=== PATIENT | male | born 1975 ===

== ENCOUNTER → 2020-02-05 11:37 | Outpatient (BNVA) | payer OTHER, SELFPAY | PROVIDERS: Visit Provider Internal Medicine Gastroenterology | DX: Z76.89 Persons encountering health services in other specified circumstances (principal) ==

== ENCOUNTER 2020-05-24 06:35 | Emergency (ER) | payer OTHER, SELFPAY ==
--- NOTE | ~2020-05-24 | CT_ITS ---
EXAMINATION: CT ABDOMEN AND PELVIS WITHOUT CONTRAST CLINICAL INFORMATION: Right flank pain. Rule out kidney stone. COMPARISON: CT abdomen and pelvis dated 02/17/2017. TECHNIQUE: Multidetector volumetric imaging was performed from the superior aspect of the liver through the pubic symphysis. Sagittal and coronal reformatted images were obtained on the technologist's workstation. This CT examination was performed using dose optimization techniques as appropriate, variously including the following: *Automated exposure control *Adjustment of mA and/or kV according to patient size (this includes techniques or standardized protocols for targeted exams where dose is matched to indication/reason for exam; i.e. extremities or head) *Use of iterative reconstruction technique DLP: 555 mGy-cm FINDINGS: LUNG BASES: The visualized lung bases are unremarkable. LIVER, GALLBLADDER, AND BILIARY TREE: The liver is normal in size, shape, and attenuation. No focal hepatic lesion or biliary ductal dilatation is present. The gallbladder is unremarkable with no evidence of radiopaque gallstones, gallbladder wall thickening, or obvious pericholecystic inflammatory changes. PANCREAS: Unremarkable. SPLEEN: Unremarkable. ADRENAL GLANDS: Unremarkable. KIDNEYS AND URETERS: The kidneys are normal in size, shape, and attenuation. No hydronephrosis, hydroureter, or calculi seen. No perinephric stranding. No ureteral calculi. BLADDER: Calculus in the urinary bladder just distal to the left UVJ measures up to 5 mm (4:643). GASTROINTESTINAL TRACT: The small and large bowel are unremarkable. The appendix is unremarkable. ABDOMINAL WALL: No significant hernia is appreciated. LYMPH NODES: Normal. VASCULAR: Unremarkable. PELVIC VISCERA: Prostate seminal vesicles are normal caliber. OSSEOUS STRUCTURES: Unchanged bilateral L5 pars interarticularis defects. CT/CT abdomen pelvis wo con IMPRESSION: Calculus in the left posterior urinary bladder just distal to the left UVJ. No renal or ureteral calculi bilaterally. No hydronephrosis. No hydroureter.
[2020-05-24 06:52] VITALS: BP 170/102; PULSE 66; RESP 20; TEMP 36.4; O2SAT 100; BMI 25.8
--- NOTE | 2020-05-24 07:17 | ED_ITS ---
HPI - Abdominal Pain General Chief Complaint: Abdominal Pain Stated Complaint: Flank pain Time Seen by Provider: 05/24/20 07:14 Source: patient Mode of arrival: ambulatory Limitations: no limitations History of Present Illness HPI narrative: 44-year-old male history of kidney stones in the past and this pain is similar to the pain when he had kidney stones, pain started 2 hours ago woke the patient up from sleep, pain is localized to the right flank area radiating down to the right inguinal hernia, describes the pain as severe colic/spasm, pain is associated with nausea, nothing makes the pain worse or better, had this pain in the past when he had a right kidney stones. Patient had a history of ESWL with stent placement for previous kidney stone. Related Data Previous Rx's Medication Instructions Recorded omeprazole 20 mg capsule,delayed 20 mg PO DAILY 60 Days #60 cap 02/05/20 release Allergies Allergy/AdvReac Type Severity Reaction Status Date / Time No Known Allergies Allergy Unverified 11/22/19 16:11 Review of Systems Review of Systems All other systems are reviewed and are negative Constitutional: Reports as per HPI and Reports no additional constitutional complaints Eyes: Reports as per HPI and Reports no additional eye complaints Reports system reviewed and no additional complaints, except as documented Cardiovascular: Reports as per HPI and Reports no additional cardiovascular complaints Respiratory: Reports as per HPI and Reports no additional respiratory complaints Gastrointestinal: Reports as per HPI and Reports no additional gastrointestinal complaints Genitourinary: Reports no additional female genitourinary complaints Musculoskeletal: Reports no additional musculoskeletal complaints Skin/Breast: Reports system reviewed and no additional complaints, except as docu Psychiatric: Reports no additional psychiatric complaints Endocrine: Reports no additional endocrine complaints Hematologic/Lymphatic: Reports no additional hematologic/lymphatic complaints Allergic/Immunologic: Reports no additional allergic/immunologic complaints Reports system reviewed and no additional complaints, except as documented and Reports Abnormal speech present Physical Exam Vital Signs: Vital Signs: Last Vital Signs Temp 97.6 F 05/24/20 06:52 Pulse 66 05/24/20 06:52 Resp 20 05/24/20 06:52 BP 170/102 H 05/24/20 06:52 Pulse Ox 100 05/24/20 06:52 Body Mass Index 25.8 Vital signs have been reviewed as appeared to be correct. Blood pressure is elevated. Heart rate normal. Respiration rate normal. Temperature normal. Oxygen saturation normal. Appearance: Alert. Oriented X3. Moderate acute distress due to pain Head: Normal external exam. Normocephalic. Atraumatic. No Shankar signs noted. No raccoon eyes noted Eyes: PERRLA. EOMI. Conjunctiva and sclera normal. Eyelids normal. ENT: TM's Normal. Pharynx normal. Uvula midline. Moist mucous membranes. No trismus noted. No drooling noted. No muffled voice noted. Neck: Normal inspection. Neck supple. FROM. No adenopathy. Thyroid Normal. No meningeal signs. No neck mass noted. CVS: Normal heart rate and rhythm. Heart sound normal. No murmurs noted. Pulses normal throughout. Respiratory: No respiratory distress. Painless inspiration. Breath sounds normal. No wheezes/rales/rhonchi noted. Chest nontender. No accessory muscle usage noted or decreased air movement noted. Abdomen: Soft and nontender. Bowel sounds normal in all 4 quadrants. No distention noted. No organomegaly noted. No visible injury noted. Back: Right CVA tenderness. Full range of motion noted. Skin: Skin warm and dry. Normal skin color. Normal skin turgor. No rashes/lesions/lacerations noted. Extremities: No lower extremity edema. Extremities exhibit normal range of motion. Extremities nontender. Neuro: Oriented X 3. No motor deficit. No sensory deficit. Reflexes normal. Course Course Course Narrative: This is a 44-year-old male with history of kidney stone came in with right flank pain, patient felt better after was given pain medication, CT of the abdomen and pelvis showed possible recently passed stone in the urinary bladder. Patient voided in the emergency department and small stone was found on strainer. Patient appears more comfortable no acute distress, right flank tenderness has improved. MDM - Abdominal Pain Lab Data Attestation: I reviewed the patient's lab results. Result diagrams: 05/24/20 07:28 05/24/20 07:28 Labs: Lab Results 05/24/20 05/24/20 05/24/20 Range/Units 07:28 07:28 07:28 WBC 7.3 (4.8-10.8) X10*3/uL RBC 5.58 (4.60-5.80) X10*6/uL Hgb 14.8 (14.0-18.0) g/dl Hct 45.0 (42-52) % MCV 80.6 (80-98) fL MCH 26.5 L (27.0-33.0) pg MCHC 32.9 (31.0-36.0) g/dl RDW 13.4 (11.0-16.0) % Plt Count 250 (160-400) X10*3/uL MPV 11.3 (9.4-12.4) fL Immature Gran % (Auto) 0.1 (0.0-0.4) % Neut % (Auto) 64.6 (45-73) % Lymph % (Auto) 27.7 (20-40) % [place] % (Auto) 6.2 (2-11) % Eos % (Auto) 1.0 (0-4) % Baso % (Auto) 0.4 (0-2) % Lymph # (Auto) 2.0 (1.2-4.9) X10*3/uL [place] # (Auto) 0.5 (0.1-1.2) X10*3/uL Eos # (Auto) 0.1 (0.0-0.4) X10*3/uL Baso # (Auto) 0.0 (0.0-0.2) X10*3/uL Abs Immat Gran (auto) 0.01 (0.00-0.03) X10*3/uL Absolute Neuts (auto) 4.7 (2.0-8.3) X10*3/uL Absolute Nucleated RBC 0.000 (0.0-0.012) X10*3/uL Nucleated RBC % (auto) 0.0 (0.0-0.2) /100WBC Sodium 140 (135-145) mmol/L Potassium 4.4 (3.3-5.1) mmol/L Chloride 102 (96-108) mmol/L Carbon Dioxide 28 (22-29) mmol/L Anion Gap 14 (12-20) BUN 13 (9-16) mg/dL Creatinine 1.24 (0.5-1.4) mg/dL Estim Creat Clear Calc 78.4 Estimated GFR > 60 Random Glucose 128 H (60-115) mg/dL Calcium 9.7 (8.4-10.2) mg/dL Total Bilirubin 0.7 (0.0-1.0) mg/dL Direct Bilirubin 0.2 (0.0-0.5) mg/dL AST 22 (5-37) U/L ALT 29 (0-40) U/L Alkaline Phosphatase 42 (39-117) U/L Total Protein 7.7 (6.5-8.0) g/dL Albumin 4.7 (3.5-5.0) g/dL Lipase 19 (8-78) U/L Urine Color YELLOW Urine Appearance HAZY Urine pH 6.0 (5.0-8.0) Ur Specific [place] >= 1.030 H (1.005-1.025) Urine Protein TRACE (NEG-TRACE) MG/DL Urine Glucose (UA) 100 H (NEG) MG/DL Urine Ketones NEG (NEG) MG/DL Urine Blood 3+ H (NEG) Urine Nitrite NEG (NEG) Ur Leukocyte Esterase NEG (NEG) Urine RBC 76-150 H (0) /HPF Urine WBC 0 (0-4) /HPF Ur Squamous Epith Cells 1+ /LPF Urine Bacteria NONE /LPF Imaging Data CT scan - abdomen: Radiologist's impression: Calculus in the left posterior urinary bladder just distal to the left UVJ. No renal or ureteral calculi bilaterally. No hydronephrosis. No hydroureter. Discharge Plan Discharge Clinical Impression: Renal colic Patient Disposition: Home, Self-Care Instructions: Renal Colic (ED) Prescriptions: No Action omeprazole 20 mg capsule,delayed release(DR/EC) 20 mg PO DAILY 60 Days Qty: 60 RF: 3 Referrals: Rima Gerber MD [Primary Care Provider] - 2 days PENDING SALE TO [facility] Past Medical History Medical History History of hemorrhoids Kidney stones Surgical History History of colonoscopy Hx of endoscopy Family History Family History Father History of high blood pressure Hx of type 1 diabetes mellitus Mother No problems noted. Social History Social History Alcohol intake: never Smoking Status: Never smoker Smoked in Last 30 Days: No Use of substances other than those prescribed or required for medical reasons: No Advance Directives: No Advance Directives Information Provided: No
[2020-05-24 07:33] LABS: MANUAL DIFF FLAG NO
[2020-05-24 07:35] LABS: Basophils Percent Auto 0.4 % (0-2); Eosinophils Absolute Auto 0.1 X10*3/uL (0.0-0.4); Hemoglobin 14.8 g/dl (14.0-18.0); Imm Gran Abs Auto 0.01 X10*3/uL (0.00-0.03); Imm Gran Pct Auto 0.1 % (0.0-0.4); Lymphocytes Percent Auto 27.7 % (20-40); Mean Corpuscular HGB Conc 32.9 g/dl (31.0-36.0); Mean Corpuscular Hemoglobin 26.5 pg (27.0-33.0); Mean Corpuscular Volume 80.6 fL (80-98); Mean Platelet Volume 11.3 fL (9.4-12.4); Monocytes Absolute Auto 0.5 X10*3/uL (0.1-1.2); Monocytes Percent Auto 6.2 % (2-11); Neutrophils Absolute Auto 4.7 X10*3/uL (2.0-8.3); Neutrophils Percent Auto 64.6 % (45-73); Platelet Count 250 X10*3/uL (160-400); Red Blood Count 5.58 X10*6/uL (4.60-5.80); Red Cell Distribution Width 13.4 % (11.0-16.0); White Blood Count 7.3 X10*3/uL (4.8-10.8)
[2020-05-24] MEDS: Ketorolac Tromethamine 15 MG/ML VIAL IV (07:35)
[2020-05-24] MEDS: 0.9 % Sodium Chloride 1,000 ML 999 ML IVCONT (07:35)
[2020-05-24] MEDS: Morphine Sulfate 2 MG/ML CARTRIDGE 1 MG IVPUSH (07:35)
[2020-05-24] MEDS: ondansetron HCL 4 MG/2 ML VIAL IVPUSH (07:35)
[2020-05-24 07:46] LABS: Glucose Urine UA 100 MG/DL (NEG); Leukocyte Esterase Urine NEG (NEG); Nitrite Urine NEG (NEG); Specific Gravity - Urine >= 1.030 (1.005-1.025); Urine Blood 3+ (NEG); Urine Ketones NEG (NEG); Urine Protein TRACE MG/DL (NEG-TRACE)
[2020-05-24 07:50] LABS: Color Urine YELLOW
[2020-05-24 07:51] LABS: Appearance Urine HAZY
[2020-05-24 07:56] LABS: Squamous Epithelial Cell Urine 1+ /LPF; WBC Urine 0 /HPF (0-4)
[2020-05-24 08:18] LABS: Alanine Aminotransferase 29 U/L (0-40); Albumin Level 4.7 g/dL (3.5-5.0); Alkaline Phosphatase 42 U/L (39-117); Anion Gap 14 (12-20); Aspartate Amino Transferase 22 U/L (5-37); Bilirubin Direct 0.2 mg/dL (0.0-0.5); Bilirubin Total 0.7 mg/dL (0.0-1.0); Blood Urea Nitrogen 13 mg/dL (9-16); Calcium 9.7 mg/dL (8.4-10.2); Carbon Dioxide 28 mmol/L (22-29); Chloride 102 mmol/L (96-108); Creatinine Clr Calc Pharmacy 78.4; Estimated Glomerular Filt Rate > 60; Glucose Random 128 mg/dL (60-115); Lipase 19 U/L (8-78); Potassium 4.4 mmol/L (3.3-5.1); Sodium 140 mmol/L (135-145); Total Protein 7.7 g/dL (6.5-8.0)
== END 2020-05-24 09:57 | disposition home or self-care (01) ==
PROVIDERS: Emergency Provider Emergency Medicine; PCP Internal Medicine
DX: N21.0 Calculus in bladder (principal); I10 Essential (primary) hypertension; Z87.442 Personal history of urinary calculi
CPT/HCPCS: 36415; 74176; 80048; 80076; 81001; 83690; 85025; 96361; 96374; 96375; 99284; J1885; J2270; J2405

== ENCOUNTER 2020-06-07 14:28 | Emergency (ER) | payer OTHER, SELFPAY ==
--- NOTE | ~2020-06-07 | XR_ITS ---
EXAMINATION: XR FOOT, RIGHT CLINICAL INFORMATION: Nail puncture wound at the bottom of the foot COMPARISON: None TECHNIQUE: AP, lateral, and oblique views of the right foot. FINDINGS: There is normal alignment without acute fracture or dislocation. The joint spaces are preserved. Soft tissues are intact. No radiopaque foreign body. XR/XR foot RT min 3V IMPRESSION: No acute bony abnormality of the right foot. No radiopaque foreign body.
[2020-06-07 14:30] VITALS: BP 137/95; PULSE 120; RESP 16; TEMP 36.9; O2SAT 96; BMI 25.8
--- NOTE | 2020-06-07 14:53 | ED.LOWEXIN ---
HPI - Extremity Injury (Lower) General Chief Complaint: Extremity Injury, Lower Stated Complaint: R FOOT PUNCTURE WOUND NAIL Time Seen by Provider: 06/07/20 14:52 History of Present Illness HPI Narrative: Patient complains of right foot puncture wound from stepping on a nail, there is no numbness weakness or tingling, no difficulty ambulating no other injury Related Data Previous Rx's Medication Instructions Recorded omeprazole 20 mg capsule,delayed 20 mg PO DAILY 60 Days #60 cap 02/05/20 release levofloxacin 500 mg PO DAILY 3 Days #3 tab 06/07/20 Allergies Allergy/AdvReac Type Severity Reaction Status Date / Time No Known Allergies Allergy Unverified 11/22/19 16:11 Review of Systems Review of Systems: Positive for puncture wound to the right foot Negatives no fever no chills no dizziness no weakness no numbness weakness or tingling PMFSH Past Medical History Source: nursing notes reviewed Medical History History of hemorrhoids Kidney stones Surgical History History of colonoscopy Hx of endoscopy Family History Family History Father History of high blood pressure Hx of type 1 diabetes mellitus Mother No problems noted. Social History Social History Alcohol intake: never Smoking Status: Never smoker Advance Directives: No Advance Directives Information Provided: Yes Physical Exam Vital Signs: Vital Signs: Last Vital Signs Temp 98.4 F 06/07/20 14:30 Pulse 94 06/07/20 16:04 Resp 17 06/07/20 16:04 BP 137/95 H 06/07/20 14:30 Pulse Ox 99 06/07/20 16:04 Body Mass Index 25.8 General appearance no distress The head is normocephalic atraumatic Neck is supple Respiratory no distress Extremities full range of motion x4 The right foot plantar forefoot has a very small puncture wound there is no tenderness to it, no bleeding no obvious foreign body and neurovascular and tendon function intact distal Course Course Course Narrative: X-ray did not show any bony injury or foreign body Patient is advised that we are giving preventative antibiotic but a puncture wound through his shoe can sometimes have infection and it may be related to retained foreign body so he does get an infection he may need further imaging or evaluation to rule out small piece of foreign body not seen by x-ray Discharge Plan Discharge Clinical Impression: Puncture wound of plantar aspect of foot Patient Disposition: Home, Self-Care Additional Instructions: A nail through the shoe into the foot is high risk for infection so we are giving her 3 days of preventative antibiotic Take probiotics available [id number], or in certain kinds of yogurt to help prevent diarrhea which can happen from antibiotics We gave you a tetanus shot Return anytime for redness swelling increasing pain discharge from wound any sign of infection If you do get any infection make sure whoever sees you knows that there may be a possibility of a retained piece of sock or sneaker in the wound so it may read need referral to a surgeon or imaging with ultrasound or MRI to confirm that there is no foreign body Prescriptions: New levofloxacin 500 mg tablet 500 mg PO DAILY 3 Days Qty: 3 RF: 0 No Action omeprazole 20 mg capsule,delayed release(DR/EC) 20 mg PO DAILY 60 Days Qty: 60 RF: 3 Interventions: ED Discharge Assessment Last Done: 06/07/20 16:16 Discharge Date/Time: 06/07/20 16:18
[2020-06-07] MEDS: Diphth,Pertus(ACell),Tet Adult 0.5 ML SYRINGE IM (16:01)
[2020-06-07] MEDS: levoFLOXacin 500 MG TABLET PO (16:01)
[2020-06-07 16:04] VITALS: PULSE 94; RESP 17; O2SAT 99
== END 2020-06-07 16:18 | disposition home or self-care (01) ==
PROVIDERS: Emergency Provider Emergency Medicine
DX: S91.331A Puncture wound without foreign body, right foot, initial encounter (principal); W45.0XXA Nail entering through skin, initial encounter; Y93.9 Activity, unspecified; Y92.9 Unspecified place or not applicable; Y99.9 Unspecified external cause status
CPT/HCPCS: 73630; 90471; 90715; 99283; 99284

== ENCOUNTER → 2020-08-07 11:35 | Outpatient (BNVA) | payer OTHER, SELFPAY | PROVIDERS: Visit Provider Internal Medicine Gastroenterology ==

== ENCOUNTER 2020-11-15 06:47 | Outpatient (REF) | payer OTHER, SELFPAY ==
[2020-11-15 11:08] LABS: MANUAL DIFF FLAG NO
[2020-11-15 11:24] LABS: Basophils Percent Auto 0.5 % (0-2); Eosinophils Absolute Auto 0.1 X10*3/uL (0.0-0.4); Eosinophils Percent Auto 1.1 % (0-4); Hematocrit 44.7 % (42-52); Hemoglobin 14.3 g/dl (14.0-18.0); Imm Gran Abs Auto 0.02 X10*3/uL (0.00-0.03); Imm Gran Pct Auto 0.3 % (0.0-0.4); Lymphocytes Absolute Auto 1.9 X10*3/uL (1.2-4.9); Lymphocytes Percent Auto 30.6 % (20-40); Mean Corpuscular Hemoglobin 25.9 pg (27.0-33.0); Mean Corpuscular Volume 80.8 fL (80-98); Mean Platelet Volume 12.2 fL (9.4-12.4); Monocytes Absolute Auto 0.4 X10*3/uL (0.1-1.2); Monocytes Percent Auto 7.1 % (2-11); Neutrophils Absolute Auto 3.7 X10*3/uL (2.0-8.3); Neutrophils Percent Auto 60.4 % (45-73); Platelet Count 234 X10*3/uL (160-400); Red Blood Count 5.53 X10*6/uL (4.60-5.80); Red Cell Distribution Width 13.2 % (11.0-16.0); White Blood Count 6.2 X10*3/uL (4.8-10.8)
[2020-11-15 11:29] LABS: Appearance Urine CLEAR; Color Urine YELLOW; Glucose Urine UA NEG (NEG); Leukocyte Esterase Urine NEG (NEG); Nitrite Urine NEG (NEG); PH 6.5 (5.0-8.0); Urine Blood NEG (NEG); Urine Ketones NEG (NEG); Urine Protein NEG (NEG-TRACE)
[2020-11-15 11:44] LABS: Alanine Aminotransferase 26 U/L (0-40); Albumin Level 4.4 g/dL (3.5-5.0); Alkaline Phosphatase 41 U/L (39-117); Anion Gap 12 (12-20); Aspartate Amino Transferase 20 U/L (5-37); Bilirubin Total 0.3 mg/dL (0.0-1.0); Blood Urea Nitrogen 14 mg/dL (9-16); Calcium 9.9 mg/dL (8.4-10.2); Carbon Dioxide 28 mmol/L (22-29); Chloride 103 mmol/L (96-108); Cholesterol 236 mg/dL; Estimated Glomerular Filt Rate > 60; Glucose Random 95 mg/dL (60-115); HDL Cholesterol 35 mg/dL; LDL Cholesterol Calculated 151 mg/dl; Potassium 4.4 mmol/L (3.3-5.1); Sodium 139 mmol/L (135-145); Total Protein 7.3 g/dL (6.5-8.0); Triglycerides 254 mg/dL
[2020-11-15 12:07] LABS: TSH reflex Free T4 5.17 uIU/mL (0.32-4.0)
[2020-11-15 12:44] LABS: RBC Urine 0-2 /HPF (0); WBC Urine 0-2 /HPF (0-4)
[2020-11-15 12:49] LABS: Free T4 (Free Thyroxine) 0.77 ng/dL (0.71-1.85)
== END 2020-11-15 06:48 | disposition home or self-care (01) ==
LOC: HO.HMGCLDS 06:47
PROVIDERS: PCP Internal Medicine; Visit Provider Internal Medicine
DX: Z00.00 Encounter for general adult medical examination without abnormal findings (principal); N20.0 Calculus of kidney
CPT/HCPCS: 36415; 80053; 80061; 81001; 84439; 84443; 85025

== ENCOUNTER 2021-02-10 11:44 | Outpatient (REF) | payer OTHER, SELFPAY ==
--- NOTE | ~2021-02-10 | XR_ITS ---
EXAMINATION: XR ABDOMEN COMPLETE CLINICAL INDICATION: Constipation COMPARISON: None TECHNIQUE: 2 views of the abdomen. FINDINGS: There is large amount of stool and gas seen throughout the colon without significant distention. The small bowel loops are normal caliber. There is no organomegaly. No gross bony abnormality. XR/XR abdomen min 2V IMPRESSION: There is moderate amount of stool seen throughout the colon consistent mild constipation..
== END 2021-02-10 11:45 | disposition home or self-care (01) ==
LOC: HO.HMGCX 11:44
PROVIDERS: PCP Internal Medicine; Visit Provider Internal Medicine
DX: K59.09 Other constipation (principal)
CPT/HCPCS: 74019

== ENCOUNTER → 2021-04-30 10:06 | Outpatient (BNVA) | payer OTHER, SELFPAY | PROVIDERS: Referring Provider Internal Medicine; Visit Provider Internal Medicine Gastroenterology ==

== ENCOUNTER 2021-08-04 15:33 | Outpatient (AMB) | payer OTHER, SELFPAY ==
--- NOTE | 2021-08-04 15:36 | MHC.OFFVIS ---
Intake Intake Visit Reasons: Calculus of kidney Intake Note: Patient is present for kidney stones Warehouse Picker Required: No Accompanied by: Self / Same As Patient Allergies No Known Allergies Allergy (Verified 09/09/22 08:32) HPI HPI Comments History of Present Illness Details Zeeshan is a pleasant male. He is seen for the following urologic conditions - nephrolithiasis Discussed imaging results Continue surveillance Nephrolithiasis Initial presentation May 2020 Imaging - 05/25 CT scan left UVJ stone - 07/26 renal ultrasound no evidence of stones PFSH Medical History (Updated 05/11/22 @ 09:28 by Aleksandr Sawyer MD) Annual physical exam Hemorrhoids History of hemorrhoids Hyperlipidemia Kidney stones Rosacea Surgical History History of colonoscopy Hx of appendectomy Hx of endoscopy Family History Father History of high blood pressure Hx of type 1 diabetes mellitus Mother No problems noted. Social History Household Members: Spouse and Children Housing: House Alcohol intake: never Patient Tobacco Use Status: Never used Tobacco e-Cigarette/Vaping Use: Never Used Current occupational status: employed Cognitive needs: No Hearing needs: No Vision needs: Yes Review of Systems Const Denies chills and Denies fever(s) Card Reports no additional complaints and Denies syncope Resp Denies cough GI Denies abdominal pain and Denies heartburn Reports as per HPI and Denies change in libido Neuro Denies syncope Psych Denies change in libido Endo Denies change in libido Physical Exam Const General: cooperative, healthy appearing, comfortable and no acute distress Orientation/consciousness: patient oriented x3 HEENT Face and sinus: Yes normal facial exam Mouth: moist mucous membranes Neck Neck: Yes normal visual inspection, Yes full ROM and Yes trachea midline Chest Chest palpation & inspection: normal inspection of the chest Resp Effort & Inspection: normal respiratory effort, able to speak in complete sentences and no respiratory distress GI Inspection: Yes normal to inspection Back/Spine/Pelvis Cervical Spine: normal cervical lordosis Thoracic/Lumbar Spine: thoracic and lumbar spine normal to inspection Skin General skin exam: no rashes or lesions noted Neuro General: patient oriented x3, gait normal, tone normal and moves all extremities Extrem General: Yes normal to inspection and Yes capillary refill normal Results AMB Urinalysis, Automated UA Leukoctes 0 Shannan/uL Last Edit by Yarely Mcdaniels, A on 08/04/21 15:49 UA Nitrite Negative Last Edit by Yarely Mcdaniels, A on 08/04/21 15:49 UA Urobilinogen 0.2 mg/dL Last Edit by Yarely Mcdaniels, A on 08/04/21 15:49 UA Protein 0 mg/dL Last Edit by Yarely Mcdaniels, A on 08/04/21 15:49 UA pH 6.0 Last Edit by Yarely Mcdaniels, RMA on 08/04/21 15:49 UA Blood 0 Joesph/uL Last Edit by Yarely Mcdaniels, A on 08/04/21 15:49 UA Specific [place] 1.020 Last Edit by Yarely Mcdaniels, A on 08/04/21 15:49 UA Ketone Negative Last Edit by Yarely Mcdaniels, A on 08/04/21 15:49 UA Bilirubin 0 mg/dL Last Edit by Yarely Mcdaniels, A on 08/04/21 15:49 UA Glucose 0 mg/dL Last Edit by Yarely Mcdaniels, A on 08/04/21 15:49 Results Reviewed Results Reviewed: Laboratory Last Values Urine pH (Auto) 6.0 08/04/21 15:48 Specific [place] (Auto) 1.020 08/04/21 15:48 Urine Protein (Auto) 0 mg/dL 08/04/21 15:48 Glucose (UA)(Auto) 0 mg/dL 08/04/21 15:48 Urine Ketones (Auto) Negative 08/04/21 15:48 Urine Blood (Auto) 0 Joesph/uL 08/04/21 15:48 Urine Nitrite (Auto) Negative 08/04/21 15:48 Urine Bilirubin (Auto) 0 mg/dL 08/04/21 15:48 Urine Urobilinogen (Auto) 0.2 mg/dL 08/04/21 15:48 Leukocyte Esterase (Auto) 0 Shannan/uL 08/04/21 15:48 Assessment & Plan Assessment & Plan (1) Kidney stones: Comment: [facility] [place] 06/2020 Code(s): N20.0 - Calculus of kidney Plan Six month follow-up Orders: Orders US renal BI 6 Months N20.0 - Calculus of kidney AMB Urinalysis Automated 08/04/21 Z13.9 - Encounter for screening, unspecified Patient Instructions: Imaging studies, laboratory and physical exam results were discussed and reviewed in detail. No major barriers to patient understanding were identified. An opportunity to ask questions regarding the treatment plan was provided. All questions were answered. The patient expressed understanding and agreement with the above treatment plan. The patient is aware they should contact our office by phone for worsening of their current condition or the appearance of new urologic symptoms. Compliance is encouraged with any medications and followup testing that is ordered. It is a privilege to participate in the urologic care of your patient. If you have any questions or concerns regarding treatment for the above conditions, or other urologic issues, please do not hesitate to contact me. The office telephone contact is [phone]. This note is constructed using voice recognition software. While every effort has been made to ensure accuracy fiber optic central office installer errors may have been included. Yours sincerely, Dr Pato De Oliveira MD, [facility] - Urology Providers of Expert, Compassionate Care for the Genitourinary System Coding Level of Care Code Est Pt Level 3 (90127) Diagnoses Kidney stones N20.0
== END 2021-08-04 16:27 | disposition home or self-care (01) ==
LOC: HO.HUSH 15:33
PROVIDERS: Visit Provider Urology
DX: N20.0 Calculus of kidney (principal)
CPT/HCPCS: 99213

== ENCOUNTER → 2021-08-04 15:33 | Outpatient (BNVA) | payer OTHER, SELFPAY | PROVIDERS: Visit Provider Urology | DX: Z13.89 Encounter for screening for other disorder (principal) ==

== ENCOUNTER 2021-08-18 08:28 | Emergency (ER) | payer OTHER, SELFPAY ==
--- NOTE | ~2021-08-18 | XR_ITS ---
EXAMINATION: XR CHEST CLINICAL INFORMATION: New onset hypertension COMPARISON: None TECHNIQUE: Frontal view of the chest was obtained. FINDINGS: No significant abnormality is noted involving the heart, lungs, mediastinum, bony thorax or soft tissues. XR/XR chest 1V IMPRESSION: Unremarkable examination.
--- NOTE | ~2021-08-18 | CT_ITS ---
EXAMINATION: CT HEAD WITHOUT CONTRAST CLINICAL INFORMATION: Hypertension, headache COMPARISON: None TECHNIQUE: Contiguous axial imaging was performed from the skull base to vertex without intravenous administration of contrast. This CT examination was performed using dose optimization techniques as appropriate, variously including the following: *Automated exposure control *Adjustment of mA and/or kV according to patient size (this includes techniques or standardized protocols for targeted exams where dose is matched to indication/reason for exam; i.e. extremities or head) *Use of iterative reconstruction technique DLP: 673 mGy-cm FINDINGS: There is no evidence of acute intracranial hemorrhage or territorial infarction. No abnormal mass effect or midline shift is seen. Dixon to white matter differentiation is well preserved. No extra-axial fluid collections are identified. The ventricles are normal in size. There is no abnormal attenuation within the brain parenchyma. The osseous structures and soft tissues are normal. The mastoid air cells and visualized portions of the paranasal sinuses are well aerated. CT/CT head/brain wo con IMPRESSION: No evidence for acute bleed or mass effect.
[2021-08-18 08:45] VITALS: BP 198/103; PULSE 76; RESP 16; TEMP 36.4; O2SAT 100; BMI 25.8
--- NOTE | 2021-08-18 08:45 | ECG_ITS ---
Test Reason : hypertension Blood Pressure : / mmHG Vent. Rate : 075 BPM Atrial Rate : 075 BPM P-R Int : 158 ms QRS Dur : 106 ms QT Int : 364 ms P-R-T Axes : 028 065 027 degrees QTc Int : 406 ms Normal sinus rhythm with sinus arrhythmia Normal ECG No previous ECGs available Referred By: Generic ED Physician Electronically Signed By:Deacon Andrade
[2021-08-18 08:48] VITALS: BP 167/92; PULSE 74; RESP 18; TEMP 36.9; O2SAT 98; BMI 25.8
--- NOTE | 2021-08-18 08:49 | ED.GENADULT ---
HPI - General Adult General Chief complaint: General Medical Stated complaint: HBP Time Seen by Provider: 08/18/21 08:45 Source: patient Mode of arrival: ambulatory Limitations: no limitations History of Present Illness HPI narrative: Patient is a 46 year old male presenting to the emergency department today with high blood pressure. Patient states that he has a history of high blood pressure but hasn't needed medication for it for awhile. Patient states that this morning he woke up and didn't feel right, so he checked his blood pressure and it was high. Patient states that he used to take Lisinopril 5mg. Patient denies any dizziness, lightheadedness, abdominal pain, nausea, vomiting, fever, chills, blurry vision, double vision, loss of vision, chest pain, difficulty breathing, shortness of breath, back pain, night sweats, pain with urination, increased urinary frequency, increased urinary urgency, blood in his urine or stool, syncope or a near syncopal episode, recent trauma or falls, bowel incontinence, bladder incontinence, bowel retention, bladder retention, or any other complaints at this time. Onset (ago): hour(s) Severity: mild Severity scale (1-10): 1 Relieving factors: none Exacerbating factors: none Associated symptoms: denies other symptoms Treatments prior to arrival: none Related Data Previous Rx's Medication Instructions Recorded omeprazole 20 mg capsule,delayed 20 mg PO DAILY #90 caps 04/30/21 release psyllium husk 2.6 gram/4.1 gram 1 tbsp PO DAILY 30 days #480 grams 04/30/21 oral powder sennosides 8.6 mg-docusate sodium 1 tab-cap PO BEDTIME 60 days #60 04/30/21 50 mg tablet (Senna with Docusate tabs Sodium) azelaic acid 15 % topical gel 1 appl topical BID #50 grams 07/10/21 (Finacea) lisinopril 5 mg tablet 5 mg PO DAILY #30 tabs 08/18/21 Allergies Allergy/AdvReac Type Severity Reaction Status Date / Time No Known Allergies Allergy Verified 08/04/21 15:36 Review of Systems Constitutional: Constitutional: Reports no additional constitutional complaints, Denies chills, Denies fever(s) and Denies night sweats Eyes: Eyes: Reports no additional eye complaints, Denies blurry vision, Denies change in vision, Denies diplopia, Denies eye discharge, Denies loss of vision and Denies eye pain ENT: Denies dizziness Cardiovascular: Cardiovascular: Reports no additional cardiovascular complaints, Denies chest pain, Denies lightheadedness, Denies Loss of Consciousness and Denies dyspnea Respiratory: Respiratory: Reports no additional respiratory complaints and Denies dyspnea Gastrointestinal: Gastrointestinal: Reports no additional gastrointestinal complaints, Denies abdominal pain, Denies melena, Denies hematochezia, Denies change in bowel habits and Denies change in stool character Genitourinary: Genitourinary: Reports no additional male genitourinary complaints, Denies hematuria, Denies oliguria, Denies difficulty urinating, Denies dysuria, Denies urinary frequency, Denies urinary hesitancy, Denies urinary incontinence and Denies urinary urgency Musculoskeletal: Musculoskeletal: Reports no additional musculoskeletal complaints, Denies numbness and Denies tingling Neurologic: Denies dizziness, Denies loss of vision, Denies numbness and Denies tingling Psychiatric: Psychiatric: Reports no additional psychiatric complaints Endocrine: Endocrine: Reports no additional endocrine complaints Hematologic/Lymphatic: Hematologic/Lymphatic: Reports no additional hematologic/lymphatic complaints Allergic/Immunologic: Allergic/Immunologic: Reports no additional allergic/immunologic complaints [facility] Past Medical History Attestation statement: The following information was validated with the patient. Source: old records reviewed Medical History History of hemorrhoids Surgical History History of colonoscopy Hx of endoscopy Family History Family History Father History of high blood pressure Hx of type 1 diabetes mellitus Mother No problems noted. Social History Social History Household Members: Spouse and Children Housing: House Alcohol intake: never Patient Tobacco Use Status: Never used Tobacco e-Cigarette/Vaping Use: Never Used Use of substances other than those prescribed or required for medical reasons: No Advance Directives: No Advance Directives Information Provided: No Current occupational status: employed Cognitive needs: No Hearing needs: No Vision needs: Yes Physical Exam ED Vital Signs: Vital Signs - 24 hr 08/18/21 08:45 08/18/21 08:48 08/18/21 09:17 Temperature 97.6 F 98.4 F Pulse Rate 76 74 60 Respiratory Rate 16 18 16 Blood Pressure 198/103 H 167/92 H 157/91 H Pulse Oximetry 100 98 97 Oxygen Delivery Method Room Air Room Air 08/18/21 10:54 Temperature Pulse Rate 63 Respiratory Rate 16 Blood Pressure 138/87 Pulse Oximetry 99 Oxygen Delivery Method Room Air BMI result Body Mass Index 25.8 Const General: cooperative, no acute distress, alert and awake Nutritional Appearance: well nourished Orientation/consciousness: patient oriented x3 Limitations: no limitations HENMT Head: Yes normal to inspection and Yes atraumatic Ears: hearing grossly normal bilaterally and external ears normal General nose exam: Normal external nose present, no nasal discharge noted and no epistaxis Face and sinus: Yes normal facial exam, No abrasion and No laceration Mouth: Normal oral and palatal mucosa present, no drooling and no muffled voice Eyes General: appearance normal, both eyes and all related structures Periorbital: periorbital findings normal Eyelids: Yes eyelids normal Conjunctivae: conjunctivae normal Pupils: Equal, round and reactive pupils present EOM: EOMs intact bilaterally Neck Neck: Yes normal visual inspection, Yes full ROM and Yes no lymphadenopathy Chest Chest palpation & inspection: normal inspection of the chest Resp Effort & Inspection: normal respiratory effort and able to speak in complete sentences Auscultation: clear to auscultation bilaterally Cardio Rate: regular rate Rhythm: regular rhythm GI Inspection: Yes normal to inspection Neuro General: patient oriented x3 and moves all extremities Cranial nerves: Yes Equal, round and reactive pupils present Cognition (Neuro): normal cognition Motor exam (neuro): 5/5 motor strength present throughout Sensory Exam: Normal double simultaneous stimulation for sensation Coordination: [id number] test normal Extrem General: Yes normal to inspection, Yes full ROM and Yes capillary refill normal Psych Appearance: grossly normal Mental Status: mental status grossly normal Affect: normal affect Attitude: cooperative Thought process: Normal thought process present Thought content: Normal thought content present Insight: Good insight present (Psych) Medical Decision Making MDM Narrative Medical decision making narrative: Patient is a 46 year old male presenting to the emergency department today with high blood pressure. Patient's physical exam was unremarkable. Patient's blood work was unremarkable. Patient's urine showed no acute process. Patient's EKG was unremarkable. Patient's chest x-ray and head CT showed no acute process. I explained my physical exam findings as well as all test results to the patient. I answered all questions asked by the patient. I stressed the importance of the patient taking his medication as prescribed. I stressed the importance of the patient following up with his primary care provider. I stressed the importance of the patient returning to the emergency department immediately if his symptoms were to worsen or if he were to develop any dizziness, shortness of breath, difficulty breathing, chest pain, blurry vision, loss of vision, nausea, vomiting, abdominal pain, fever, chills, back pain, or any other complaints. Patient verbalized agreement and understanding with this treatment plan and discharge. Differential Diagnosis Differential Diagnosis: HTN, elevated blood pressure Medical Records Medical records reviewed: Yes I reviewed the patient's medical records. Lab Data Lab results reviewed: Yes I reviewed the patient's lab results. Result diagrams: 08/18/21 09:04 08/18/21 09:03 Labs: Lab Results 08/18/21 08/18/21 08/18/21 Range/Units 09:03 09:04 09:39 WBC 4.8 (4.8-10.8) X10*3/uL RBC 5.27 (4.60-5.80) X10*6/uL Hgb 14.1 (14.0-18.0) g/dl Hct 42.6 (42.0-52.0) % MCV 80.8 (80.0-98.0) fL MCH 26.8 L (27.0-33.0) pg MCHC 33.1 (31.0-36.0) g/dl RDW 13.3 (11.0-16.0) % Plt Count 210 (160-400) X10*3/uL MPV 11.5 (9.4-12.4) fL Immature Gran % (Auto) 0.2 (0.0-0.4) % Neut % (Auto) 57.9 (45-73) % Lymph % (Auto) 34.3 (20-40) % Reagan % (Auto) 6.4 (2-11) % Eos % (Auto) 0.8 (0-4) % Baso % (Auto) 0.4 (0-2) % Lymph # (Auto) 1.7 (1.2-4.9) X10*3/uL Reagan # (Auto) 0.3 (0.1-1.2) X10*3/uL Eos # (Auto) 0.0 (0.0-0.4) X10*3/uL Baso # (Auto) 0.0 (0.0-0.2) X10*3/uL Abs Immat Gran (auto) 0.01 (0.00-0.03) X10*3/uL Absolute Neuts (auto) 2.8 (2.0-8.3) x10*3/uL Absolute Nucleated RBC 0.000 (0.0-0.012) X10*3/uL Nucleated RBC % (auto) 0.0 (0.0-0.2) /100WBC Sodium 139 (135-145) mmol/L Potassium 4.5 (3.3-5.1) mmol/L Chloride 105 (96-108) mmol/L Carbon Dioxide 27 (22-29) mmol/L Anion Gap 12 (12-20) BUN 16 (9-16) mg/dL Creatinine 1.13 (0.5-1.4) mg/dL Estim Creat Clear Calc 84.3 Estimated GFR > 60 Random Glucose 96 (60-115) mg/dL Calcium 9.5 (8.4-10.2) mg/dL Total Bilirubin 0.3 (0.0-1.0) mg/dL AST 19 (5-37) U/L ALT 24 (0-40) U/L Alkaline Phosphatase 43 (39-117) U/L Total Protein 7.5 (6.5-8.0) g/dL Albumin 4.5 (3.5-5.0) g/dL Urine Color YELLOW Urine Appearance CLEAR Urine pH 6.5 (5.0-8.0) Ur Specific [place] 1.020 (1.005-1.025) Urine Protein NEG (NEG-TRACE) MG/DL Urine Glucose (UA) NEG (NEG) MG/DL Urine Ketones NEG (NEG) MG/DL Urine Blood NEG (NEG) Urine Nitrite NEG (NEG) Ur Leukocyte Esterase NEG (NEG) Imaging Data CT scan - head: Attestation: I personally reviewed and interpreted this imaging study as follows: My impression: No acute process. Radiologist's impression: EXAMINATION: CT HEAD WITHOUT CONTRAST CLINICAL INFORMATION: Hypertension, headache? COMPARISON: None TECHNIQUE: Contiguous axial imaging was performed from the skull base to vertex without intravenous administration of contrast. This CT examination was performed using dose optimization techniques as appropriate, variously including the following: *Automated exposure control *Adjustment of mA and/or kV according to patient size (this includes techniques or standardized protocols for targeted exams where dose is matched to indication/reason for exam; i.e. extremities or head) *Use of iterative reconstruction technique DLP: 673 mGy-cm FINDINGS: There is no evidence of acute intracranial hemorrhage or territorial infarction. No abnormal mass effect or midline shift is seen. Dixon to white matter differentiation is well preserved. No extra-axial fluid collections are identified. The ventricles are normal in size. There is no abnormal attenuation within the brain parenchyma. The osseous structures and soft tissues are normal. The mastoid air cells and visualized portions of the paranasal sinuses are well aerated. ? CT/CT head/brain wo con IMPRESSION: No evidence for acute bleed or mass effect. Dictated By: Alfie Matt Signed By: Electronically signed by Alfie?Vernell 08/18/21 1109 Chest x-ray: Attestation: I personally reviewed and interpreted this imaging study as follows: My impression: No acute process. ECG Data Attestation: I personally reviewed and interpreted this ECG as follows: Prior ECG tracings: not available for review Interpretation: Vent. Rate: 075 BPM ? ? Atrial Rate: 075 BPM P-R Int: 158 ms? QRS Dur: 106 ms QT Int: 364 ms ? ? ? P-R-T Axes: 028 065 027 degrees QTc Int: 406 ms ? Normal sinus rhythm with sinus arrhythmia Normal ECG No previous ECGs available DD/ [id number] Discharge Plan Discharge Clinical Impression: HTN (hypertension) Patient Disposition: Home, Self-Care Instructions: Hypertension (ED) Additional Instructions: Follow up with your primary care provider. Return to the emergency department immediately if your symptoms worsen or if you develop any dizziness, shortness of breath, difficulty breathing, chest pain, blurry vision, loss of vision, nausea, vomiting, abdominal pain, fever, chills, back pain, or any other complaints. Prescriptions: New lisinopril 5 mg tablet 5 mg PO DAILY Qty: 30 0RF No Action azelaic acid [Finacea] 15 % gel 1 appl topical BID Qty: 50 2RF omeprazole 20 mg capsule,delayed release(DR/EC) 20 mg PO DAILY Qty: 90 2RF psyllium husk 2.6 gram/4.1 gram powder 1 tbsp PO DAILY 30 Days Qty: 480 3RF Rx Instructions: mix into at least 8 oz of water or juice before administering sennosides-docusate sodium [Senna with Docusate Sodium] 8.6-50 mg tablet 1 tab-cap PO BEDTIME 60 Days Qty: 60 2RF Referrals: Rima Gerber MD [Primary Care Provider] - Stand Alone Forms: Work/School Release Interventions: ED Discharge Assessment Last Done: 08/18/21 11:30 Discharge Date/Time: 08/18/21 11:35 Print Language: Welsh
[2021-08-18 09:08] LABS: MANUAL DIFF FLAG NO
[2021-08-18 09:09] LABS: Basophils Percent Auto 0.4 % (0-2); Eosinophils Percent Auto 0.8 % (0-4); Hematocrit 42.6 % (42.0-52.0); Hemoglobin 14.1 g/dl (14.0-18.0); Imm Gran Abs Auto 0.01 X10*3/uL (0.00-0.03); Imm Gran Pct Auto 0.2 % (0.0-0.4); Lymphocytes Absolute Auto 1.7 X10*3/uL (1.2-4.9); Lymphocytes Percent Auto 34.3 % (20-40); Mean Corpuscular HGB Conc 33.1 g/dl (31.0-36.0); Mean Corpuscular Hemoglobin 26.8 pg (27.0-33.0); Mean Corpuscular Volume 80.8 fL (80.0-98.0); Mean Platelet Volume 11.5 fL (9.4-12.4); Monocytes Absolute Auto 0.3 X10*3/uL (0.1-1.2); Monocytes Percent Auto 6.4 % (2-11); Neutrophils Absolute Auto 2.8 x10*3/uL (2.0-8.3); Neutrophils Percent Auto 57.9 % (45-73); Platelet Count 210 X10*3/uL (160-400); Red Blood Count 5.27 X10*6/uL (4.60-5.80); Red Cell Distribution Width 13.3 % (11.0-16.0); White Blood Count 4.8 X10*3/uL (4.8-10.8)
[2021-08-18 09:17] VITALS: BP 157/91; PULSE 60; RESP 16; O2SAT 97
[2021-08-18] MEDS: lisinopriL 5 MG TABLET PO (09:19)
[2021-08-18 09:32] LABS: Alanine Aminotransferase 24 U/L (0-40); Albumin Level 4.5 g/dL (3.5-5.0); Alkaline Phosphatase 43 U/L (39-117); Anion Gap 12 (12-20); Aspartate Amino Transferase 19 U/L (5-37); Bilirubin Total 0.3 mg/dL (0.0-1.0); Blood Urea Nitrogen 16 mg/dL (9-16); Calcium 9.5 mg/dL (8.4-10.2); Carbon Dioxide 27 mmol/L (22-29); Chloride 105 mmol/L (96-108); Creatinine Clr Calc Pharmacy 84.3; Estimated Glomerular Filt Rate > 60; Glucose Random 96 mg/dL (60-115); Potassium 4.5 mmol/L (3.3-5.1); Sodium 139 mmol/L (135-145); Total Protein 7.5 g/dL (6.5-8.0)
[2021-08-18 09:46] LABS: Appearance Urine CLEAR; Color Urine YELLOW; Glucose Urine UA NEG (NEG); Leukocyte Esterase Urine NEG (NEG); Nitrite Urine NEG (NEG); PH 6.5 (5.0-8.0); Urine Blood NEG (NEG); Urine Ketones NEG (NEG); Urine Protein NEG (NEG-TRACE)
[2021-08-18 10:54] VITALS: BP 138/87; PULSE 63; RESP 16; O2SAT 99
== END 2021-08-18 11:35 | disposition home or self-care (01) ==
PROVIDERS: Physician Assistant Medical; Emergency Provider Emergency Medicine; PCP Internal Medicine
DX: I10 Essential (primary) hypertension (principal)
CPT/HCPCS: 36415; 70450; 71045; 80053; 81003; 85025; 93005; 99284

== ENCOUNTER 2021-10-30 07:06 | Outpatient (REF) | payer OTHER, SELFPAY ==
[2021-10-30 11:44] LABS: Hemoglobin 13.9 g/dl (14.0-18.0); Mean Corpuscular HGB Conc 32.3 g/dl (31.0-36.0); Mean Corpuscular Hemoglobin 26.4 pg (27.0-33.0); Mean Corpuscular Volume 81.6 fL (80.0-98.0); Mean Platelet Volume 12.4 fL (9.4-12.4); Platelet Count 207 X10*3/uL (160-400); Red Blood Count 5.27 X10*6/uL (4.60-5.80); Red Cell Distribution Width 13.3 % (11.0-16.0); White Blood Count 5.4 X10*3/uL (4.8-10.8)
[2021-10-30 12:20] LABS: Alanine Aminotransferase 25 U/L (0-40); Albumin Level 4.4 g/dL (3.5-5.0); Alkaline Phosphatase 37 U/L (39-117); Anion Gap 14 (12-20); Aspartate Amino Transferase 18 U/L (5-37); Bilirubin Total 0.4 mg/dL (0.0-1.0); Blood Urea Nitrogen 12 mg/dL (9-16); Calcium 9.7 mg/dL (8.4-10.2); Carbon Dioxide 27 mmol/L (22-29); Chloride 102 mmol/L (96-108); Cholesterol 219 mg/dL; Estimated Glomerular Filt Rate > 60; Glucose Fasting 89 mg/dL (60-99); HDL Cholesterol 34 mg/dL; LDL Cholesterol Calculated 146 mg/dl; Potassium 4.9 mmol/L (3.3-5.1); Sodium 138 mmol/L (135-145); Total Protein 7.3 g/dL (6.5-8.0); Triglycerides 196 mg/dL
[2021-10-30 12:40] LABS: TSH reflex Free T4 6.41 uIU/mL (0.32-4.0)
[2021-10-30 13:12] LABS: Free T4 (Free Thyroxine) 0.81 ng/dL (0.71-1.85)
== END 2021-10-30 07:07 | disposition home or self-care (01) ==
LOC: HO.HMGCLDS 07:06
PROVIDERS: PCP Internal Medicine; Visit Provider Internal Medicine
DX: Z00.00 Encounter for general adult medical examination without abnormal findings (principal); E78.5 Hyperlipidemia, unspecified
CPT/HCPCS: 36415; 80053; 80061; 84439; 84443; 85027

== ENCOUNTER 2021-11-16 09:17 | Outpatient (REF) | payer OTHER, SELFPAY ==
--- NOTE | ~2021-11-16 | US_ITS ---
EXAMINATION: US RETROPERITONEAL LIMITED (RENAL ONLY) CLINICAL INFORMATION: Calculus of kidney. COMPARISON: X-ray abdomen 02/10/2021. CT abdomen and pelvis 05/24/2020. Ultrasound abdomen 09/20/2018. Renal ultrasound 03/29/2017. TECHNIQUE: Real-time imaging of the kidneys. FINDINGS: RIGHT KIDNEY: 11.7 x 4.4 x 4.7 cm (SAG x AP x TRV). The kidney is normal in size, contour, and echogenicity. Renal cortical thickness is normal. No calculi or focal parenchymal lesions. No hydronephrosis. LEFT KIDNEY: 10.5 x 5.8 x 4.9 cm (SAG x AP x TRV). The kidney is normal in size, contour, and echogenicity. Renal cortical thickness is normal. No calculi or focal parenchymal lesions. No hydronephrosis. US/US renal BI IMPRESSION: Unremarkable renal ultrasound.
== END 2021-11-16 09:18 | disposition home or self-care (01) ==
LOC: HO.US 09:17
PROVIDERS: Visit Provider Urology
DX: N20.0 Calculus of kidney (principal)
CPT/HCPCS: 76775

== ENCOUNTER 2022-03-15 06:21 | Outpatient (REF) | payer OTHER, SELFPAY ==
[2022-03-15 11:59] LABS: TSH reflex Free T4 6.18 uIU/mL (0.32-4.0)
[2022-03-15 13:18] LABS: Free T4 (Free Thyroxine) 1.14 ng/dL (0.71-1.85)
== END 2022-03-15 06:22 | disposition home or self-care (01) ==
LOC: HO.HMGCLDS 06:21
PROVIDERS: PCP Internal Medicine; Visit Provider Internal Medicine
DX: E03.9 Hypothyroidism, unspecified (principal)
CPT/HCPCS: 36415; 84439; 84443

== ENCOUNTER → 2022-03-18 08:18 | Outpatient (BNVA) | payer OTHER, SELFPAY | PROVIDERS: PCP Internal Medicine; Visit Provider Internal Medicine Gastroenterology | DX: K21.9 Gastro-esophageal reflux disease without esophagitis (principal) ==

== ENCOUNTER 2022-03-29 08:24 | Outpatient (REF) | payer OTHER, SELFPAY ==
--- NOTE | ~2022-03-29 | US_ITS ---
EXAMINATION: US THYROID CLINICAL INFORMATION: Hypothyroidism, unspecified. COMPARISON: None TECHNIQUE: Linear transducer grayscale and color Doppler examination with attention to the region of the thyroid. FINDINGS: SIZE: Measurements of the thyroid lobes and nodules are given in sagittal, anteroposterior and transverse dimensions respectively. Right Thyroid Lobe: 5.37 x 1.41 x 1.58 cm, volume 6.26 mL. Parenchyma: The gland echotexture is homogeneous. Thyroid vascularity is normal. Left Thyroid Lobe: 4.45 x 1.23 x 1.52 cm, volume 4.35 mL. Parenchyma: The gland echotexture is homogeneous. Thyroid vascularity is normal. Isthmus: 0.25 cm in maximum AP dimension. No focal thyroid nodule is seen. NODES: No lymphadenopathy is seen in the tissue surrounding the thyroid gland. US/US thyroid IMPRESSION: 1. Unremarkable thyroid ultrasound.
== END 2022-03-29 08:25 | disposition home or self-care (01) ==
LOC: HO.HMGCX 08:24
PROVIDERS: PCP Internal Medicine; Visit Provider Internal Medicine
DX: E03.9 Hypothyroidism, unspecified (principal); I10 Essential (primary) hypertension
CPT/HCPCS: 76536

== ENCOUNTER 2022-05-15 07:49 | Outpatient (REF) | payer OTHER, SELFPAY ==
[2022-05-15 11:45] LABS: Alanine Aminotransferase 38 U/L (0-40); Albumin Level 4.4 g/dL (3.5-5.0); Alkaline Phosphatase 42 U/L (39-117); Anion Gap 11 (12-20); Aspartate Amino Transferase 28 U/L (5-37); Bilirubin Total 0.5 mg/dL (0.0-1.0); Blood Urea Nitrogen 16 mg/dL (9-16); Calcium 9.4 mg/dL (8.4-10.2); Carbon Dioxide 28 mmol/L (22-29); Chloride 104 mmol/L (96-108); Estimated Glomerular Filt Rate > 60; Glucose Fasting 94 mg/dL (60-99); Potassium 4.7 mmol/L (3.3-5.1); Sodium 138 mmol/L (135-145); Total Protein 7.3 g/dL (6.5-8.0)
[2022-05-15 12:03] LABS: TSH reflex Free T4 1.67 uIU/mL (0.32-4.0)
== END 2022-05-15 07:50 | disposition home or self-care (01) ==
LOC: HO.HMGCLDS 07:49
PROVIDERS: PCP Internal Medicine; Visit Provider Internal Medicine
DX: E03.9 Hypothyroidism, unspecified (principal); I10 Essential (primary) hypertension
CPT/HCPCS: 36415; 80053; 84443

== ENCOUNTER → 2022-09-09 08:23 | Outpatient (BNVA) | payer OTHER, SELFPAY | PROVIDERS: PCP Internal Medicine; Visit Provider Internal Medicine Gastroenterology ==

== ENCOUNTER 2022-09-24 10:01 | Day surgery (SDC) | payer OTHER, SELFPAY ==
--- NOTE | 2022-09-23 10:38 | HO.ANESPROP2 ---
Documented by User: Ciara Marquez NP 09/23/22 10:43 HPI - Anesthesia Eval Consult details Narrative: 47yo M for Colonoscopy PMFSH Active Problems Active Problems: All Active Problems (Updated 05/11/22 @ 09:28 by Aleksandr Sawyer MD) Acute gingivitis (Acute) Upper respiratory tract infection (Acute) Hypothyroid (Acute) HTN (hypertension) (Acute) Rosacea (Acute) Hyperlipidemia (Acute) Hemorrhoids (Acute) Annual physical exam (Acute) Kidney stones (Acute) History of colon polyps (Acute) Chronic constipation (Acute) GERD (gastroesophageal reflux disease) (Acute) Past Medical History Medical History (Updated 09/24/22 @ 10:15 by Dora Sifuentes RN) Annual physical exam Asthma due to seasonal allergies Hemorrhoids History of hemorrhoids Hyperlipidemia Kidney stones Rosacea Seasonal asthma Family History Family History Father History of high blood pressure Hx of type 1 diabetes mellitus Mother No problems noted. Surgical History Surgical History History of colonoscopy Hx of appendectomy Hx of endoscopy Social History Social History Household Members: Spouse and Children Housing: House Alcohol intake: never Patient Tobacco Use Status: Never used Tobacco e-Cigarette/Vaping Use: Never Used Are you DNR?: No Advance Directives: No Advance Directives Information Provided: Yes Recently lost weight without trying: No Nutrition Risks: No Nutritional Risk Current occupational status: employed Cognitive needs: No Hearing needs: No Vision needs: Yes Meds Allergies Allergy/AdvReac Type Severity Reaction Status Date / Time No Known Allergies Allergy Verified 09/09/22 08:32 Home Medications Medication Instructions Recorded Confirmed Last Taken Type fluticasone propionate 50 2 spray intranasal BID 03/18/22 09/24/22 Unknown History mcg/actuation nasal spray,suspension Exam Exam Date and Time: September 23, 2022 1038 Pertinent Lab Results Pertinent Lab Results: Laboratory Tests 10/30/21 05/15/22 07:12 07:53 WBC 5.4 Hgb 13.9 L Hct 43.0 Plt Count 207 Sodium 138 Potassium 4.7 Chloride 104 Carbon Dioxide 28 BUN 16 Creatinine 1.04 Assessment and Plan Assessment Anesthesia Assessment: Chart Reviewed Documented by User: Celia Nixon MD 09/24/22 12:57 PMFSH Past Medical History Medical History (Updated 09/24/22 @ 10:15 by Dora Sifuentes RN) Annual physical exam Asthma due to seasonal allergies Hemorrhoids History of hemorrhoids Hyperlipidemia Kidney stones Rosacea Seasonal asthma Family History Family History Father History of high blood pressure Hx of type 1 diabetes mellitus Mother No problems noted. Family history of problems with anesthesia: No Surgical History Surgical History History of colonoscopy Hx of appendectomy Hx of endoscopy History of Problems with Anesthesia: No Social History Social History Household Members: Spouse and Children Housing: House Alcohol intake: never Patient Tobacco Use Status: Never used Tobacco e-Cigarette/Vaping Use: Never Used Are you DNR?: No Advance Directives: No Advance Directives Information Provided: Yes Recently lost weight without trying: No Nutrition Risks: No Nutritional Risk Current occupational status: employed Cognitive needs: No Hearing needs: No Vision needs: Yes Meds Allergies Allergy/AdvReac Type Severity Reaction Status Date / Time No Known Allergies Allergy Verified 09/09/22 08:32 Home Medications Medication Instructions Recorded Confirmed Last Taken Type fluticasone propionate 50 2 spray intranasal BID 03/18/22 09/24/22 Unknown History mcg/actuation nasal spray,suspension Exam Airway Mallampati Class: I TM Dist: >3cm Neck ROM: Full Loose/Missing/Broken Teeth: No Heart: rr Lungs: cta Assessment and Plan Assessment Anesthesia Assessment: Anesthesia Plan Discussed Final Anesthetic Review Family History of Problems with Anesthesia: No History of Problems with Anesthesia: No NPO: Yes ASA Class: I and II Final Preanesthetic Review: No Changes in Pt Med Stat, Meds/Allgs Chart Reviewed and Consent Obtained/Reviewed Patient Risk: Low Procedure Risk: Low Anesthetic Plan Anesthetic Plan: MAC: Disposition: Standard PACU
[2022-09-24 09:28] VITALS: BMI 25.8
[2022-09-24 10:05] VITALS: BP 143/90; PULSE 71; RESP 20; TEMP 36.3; O2SAT 98
--- NOTE | 2022-09-24 10:14 | MHC.SHP ---
Pre-Procedural Eval Section A Date of Service: 09/24/22 The patient is an INPATIENT: No Changes since office visit: Yes Patient answered all questions; No Cold of Flu in the past 2 weeks, No New Medical Problems and No Changes in Medication The History & Physical has been completed within 30 days and I have reviewed it.: Yes Section B Chief Complaint: hemorrhoids,constipation, Allergies: Allergies Allergy/AdvReac Type Severity Reaction Status Date / Time No Known Allergies Allergy Verified 09/09/22 08:32 Plan I have reviewed the history and physical and performed a pertinent physical examination on my patient. No changes have occurred unless specified. Time Spent With Patient Time: Total time managing care of this patient today ____ minutes.
[2022-09-24] MEDS: Lactated Ringers 1,000 ML 100 ML IVCONT (10:21)
--- NOTE | 2022-09-24 11:02 | W.PM.OPN ---
Operative Note Operative Note Date of Service: 09/24/22 Narrative: COLONOSCOPY TILL CECUM Pre-op diagnosis: colon cancer screening, history of colon polyps Post-op diagnosis:? diverticulosis, hemorrhoids Endoscopist:? Gerald Tracy MD Anesthesia:?MAC Consent: Indications for the procedure and potential complications of bleeding, perforation, reaction to medications and missed diagnosis were discussed with the patient and informed consent was obtained. Instrument: Olympus PCF H 190 L variable stiffness pediatric colonoscope Monitoring: Vital signs and clinical assessment, intermittent blood pressure monitoring, continuous EKG monitoring, Pulse oximetry and Carbon Dioxide monitoring were done throughout the procedure. Please see anesthesia flowsheet. Colon withdrawl time was 14 minutes. Procedure: The patient was placed in the left lateral decubitis position and pre-procedure medications were administered. After a digital rectal examination of the ano-rectum, the video colonoscope was inserted into the rectum and advanced through the colon to the cecum. The colonoscope was slowly withdrawn in a retrograde panoramic fashion and the colon mucosa was carefully examined including a retroflexed view of the rectum. Findings and interventions are described below. Procedure Difficulty: Without difficulty Findings: Terminal Ileum: Not evaluated Cecum: Normal Ascending Colon: Normal Transverse Colon: Normal Descending Colon: Normal Sigmoid Colon: Moderate diverticulosis Rectum: Normal Ano-rectum: Small internal hemorrhoids Colon preparation: Good after some irrigation Impression and Post Procedure Diagnosis: Colonoscopy Findings: No polyps were detected Moderate diverticulosis seen in the sigmoid colon Small hemorrhoids on retroflexed exam. Plan: Patient has an appointment on 10/28/22 in the GI Clinic with Gerald Tracy M.D. Repeat Colonoscopy in 5 years due to a hx of adenomatous colon polyps. Above findings were reviewed with the patient and diverticulosis handout was given in the discharge area
[2022-09-24 11:38] VITALS: BP 103/58; PULSE 71; RESP 18; TEMP 36.6; O2SAT 95
[2022-09-24 11:53] VITALS: BP 121/74; PULSE 71; RESP 20; TEMP 36.4; O2SAT 97
== END 2022-09-24 12:06 | disposition home or self-care (01) ==
PROVIDERS: PCP Internal Medicine; Visit Provider Internal Medicine Gastroenterology
PROC: 0DJD8ZZ Inspection of Lower Intestinal Tract, Via Natural or Artificial Opening Endoscopic (ICD-10-PCS; CPT 45378; principal; 2022-09-24 11:20)
DX: Z12.11 Encounter for screening for malignant neoplasm of colon (principal); K57.30 Diverticulosis of large intestine without perforation or abscess without bleeding; K64.8 Other hemorrhoids; K21.9 Gastro-esophageal reflux disease without esophagitis; K59.09 Other constipation; I10 Essential (primary) hypertension; Z86.010 Personal history of colon polyps; Z79.899 Other long term (current) drug therapy
CPT/HCPCS: 45378

== ENCOUNTER → 2022-09-24 10:01 | Outpatient (BNV) | payer OTHER, SELFPAY | PROVIDERS: PCP Internal Medicine; Visit Provider Internal Medicine Gastroenterology | DX: Z12.11 Encounter for screening for malignant neoplasm of colon (principal); Z86.010 Personal history of colon polyps; K57.30 Diverticulosis of large intestine without perforation or abscess without bleeding; K64.0 First degree hemorrhoids | CPT/HCPCS: 45378 ==

== ENCOUNTER 2022-11-11 12:11 | Outpatient (AMB) | payer OTHER, SELFPAY ==
--- NOTE | 2022-11-11 12:39 | MHC.PC.OV ---
Vital Signs 11/11/22 12:40 Height 5 ft 10 in Weight 182 lb BMI 26.1 BP 112/74 Blood Pressure Location Lt brachial Position Sitting Pulse 74 Pulse Source Pulse Oximeter Pulse Oximetry (%) 98 Oxygen Delivery Method Room Air Intake Visit Reasons: Annual PE Intake Note: Pt is here today for PE. Allergies No Known Allergies Allergy (Verified 11/11/22 12:41) Medication List - Last Reconciled 11/11/22 by Rima Gerber MD albuterol sulfate 90 mcg/actuation (Ventolin HFA) 1 inh inhalation QID PRN fluticasone propionate 50 mcg/actuation 2 sprays intranasal BID levothyroxine 50 mcg PO DAILY lisinopril 10 mg PO DAILY Tobacco use date assessed: 11/11/22 Dental Screening Dental Screen Date: 11/11/22 Did you have a dental visit in the last 12 months?: Yes Did you have a dental problem in the last 6 months where you did not have access to dental care?: No Was dental information given to patient?: Patient has dentist HPI Annual PE HPI Details PATIENT PRESENTS FOR PHYSICAL PFSH Medical History (Updated 11/11/22 @ 13:11 by Rima Gerber MD) Asthma due to seasonal allergies Seasonal asthma Rosacea Hyperlipidemia Hemorrhoids Annual physical exam Kidney stones History of hemorrhoids Surgical History Hx of appendectomy Hx of endoscopy History of colonoscopy Family History Father History of high blood pressure Hx of type 1 diabetes mellitus Mother No problems noted. Social History Household Members: Spouse and Children Housing: House Alcohol intake: never Patient Tobacco Use Status: Never used Tobacco e-Cigarette/Vaping Use: Never Used Current occupational status: employed Cognitive needs: No Hearing needs: No Vision needs: Yes Questionnaire Thrive Questionnaire Date Thrive assessed: 03/18/22 AUDIT C Alcohol Use Questionnaire (AUDIT-C) 1. How often do you have a drink containing alcohol?: Never 3. How often do you have six or more drinks on one occasion?: Never Total Score: 0 SHAYLA-7 AMB Questionnaire SHAYLA-7 Date SHAYLA - 7 assessed: 03/18/22 Source: Developed by Drs. Nolan L. Sadia Hyde, Shad Hodgson and colleagues, with an educational efren from [employer]. Review of Systems Const All systems reviewed & are unremarkable except as noted in HPI and below Reports no additional complaints Eyes Reports no additional complaints ENT Reports no additional complaints Card Reports no additional complaints Resp Reports no additional complaints GI Reports no additional complaints Reports no additional complaints Physical exam (Primary Care) Vital Signs: Last Vital Signs Pulse 74 11/11/22 12:40 BP 112/74 11/11/22 12:40 Pulse Ox 98 11/11/22 12:40 Oxygen Delivery Method Room Air 11/11/22 12:40 BMI result Body Mass Index 26.1 Tobacco/Smoking Status: Tobacco use Status Tobacco use date assessed 11/11/22 11/11/22 12:45 Patient Tobacco Use Status Never used Tobacco 11/11/22 12:45 e-Cigarette/Vaping Use Never Used 11/11/22 12:45 Thrive Assessment: Date of Thrive Assessment Date Thrive assessed 03/18/22 11/11/22 12:45 Const General: no acute distress HENMT Head: Yes normal to inspection Ears: hearing grossly normal bilaterally General nose exam: Normal external nose present Face and sinus: Yes normal facial exam Throat: Yes posterior oropharynx normal Eyes General: appearance normal, both eyes and all related structures Neck Neck: Yes no lymphadenopathy and Yes supple Resp Effort & Inspection: normal respiratory effort Auscultation: clear to auscultation bilaterally Cardio Rhythm: regular rhythm Heart sounds: S1 normal heart sound present and S2 normal heart sound present GI Inspection: Yes normal to inspection Palpation (GI): Soft to palpation Percussion: Yes normal to percussion Auscultation: normal bowel sounds Assessment and Plan Assessment & Plan (1) Hyperlipidemia: Code(s): E78.5 - Hyperlipidemia, unspecified Plan: Continue low-cholesterol diet ,check lipid profile next week (2) Hypothyroid: Code(s): E03.9 - Hypothyroidism, unspecified Plan: Continue levothyroxine check TSH (3) HTN (hypertension): Code(s): I10 - Essential (primary) hypertension Plan: Continue lisinopril (4) History of colon polyps: Comment: 11/20/19 COLONOSCOPY SHOWED: Two adenomatous polyps (one was 10-12 mm) were removed and moderate diverticulosis seen in the sigmoid colon. repeat colonoscopy 09/26 no polyps, recheck 5 yrs Code(s): Z86.010 - Personal history of colonic polyps (5) Annual physical exam: Code(s): Z00.00 - Encounter for general adult medical examination without abnormal findings Plan: Well-balanced diet regular exercise discussed with the patient, return in 1 year Orders: Orders Comprehensive [place]. Panel Fast Today E03.9 - Hypothyroidism, unspecified, E78.5 - Hyperlipidemia, unspecified, I10 - Essential (primary) hypertension Comprehensive Met. Panel 365 Days E03.9 - Hypothyroidism, unspecified, I10 - Essential (primary) hypertension, Z00.00 - Encounter for general adult medical examination without abnormal findings TSH reflex Free T4 365 Days E03.9 - Hypothyroidism, unspecified, I10 - Essential (primary) hypertension, Z00.00 - Encounter for general adult medical examination without abnormal findings UA w Microscopic 365 Days E03.9 - Hypothyroidism, unspecified, I10 - Essential (primary) hypertension, Z00.00 - Encounter for general adult medical examination without abnormal findings Complete Blood Count Auto Diff Today E03.9 - Hypothyroidism, unspecified, E78.5 - Hyperlipidemia, unspecified, I10 - Essential (primary) hypertension TSH reflex Free T4 Today E03.9 - Hypothyroidism, unspecified, E78.5 - Hyperlipidemia, unspecified, I10 - Essential (primary) hypertension Lipid Panel Today E03.9 - Hypothyroidism, unspecified, E78.5 - Hyperlipidemia, unspecified, I10 - Essential (primary) hypertension Lipid Panel 365 Days E03.9 - Hypothyroidism, unspecified, I10 - Essential (primary) hypertension, Z00.00 - Encounter for general adult medical examination without abnormal findings Complete Blood Count Auto Diff 365 Days E03.9 - Hypothyroidism, unspecified, I10 - Essential (primary) hypertension, Z00.00 - Encounter for general adult medical examination without abnormal findings Coding Level of Care Code Est Pt Prev Care 40-64y(34161) Diagnoses Hyperlipidemia E78.5 Hypothyroid E03.9 HTN (hypertension) I10 History of colon polyps Z86.010 Annual physical exam Z00.00
[2022-11-11 12:40] VITALS: BP 112/74; PULSE 74; O2SAT 98; BMI 26.1
== END 2022-11-11 13:15 | disposition home or self-care (01) ==
PROVIDERS: PCP Internal Medicine; Visit Provider Internal Medicine
DX: Z00.00 Encounter for general adult medical examination without abnormal findings (principal); E03.9 Hypothyroidism, unspecified; I10 Essential (primary) hypertension; Z86.010 Personal history of colon polyps; E78.5 Hyperlipidemia, unspecified
CPT/HCPCS: 99396

== ENCOUNTER 2022-12-04 07:45 | Outpatient (REF) | payer OTHER, SELFPAY ==
[2022-12-04 11:24] LABS: MANUAL DIFF FLAG NO
[2022-12-04 11:27] LABS: Basophils Percent Auto 0.6 % (0-2); Eosinophils Absolute Auto 0.2 X10*3/uL (0.0-0.4); Eosinophils Percent Auto 3.6 % (0-4); Hematocrit 45.2 % (42.0-52.0); Hemoglobin 14.3 g/dl (14.0-18.0); Imm Gran Abs Auto 0.04 X10*3/uL (0.00-0.03); Imm Gran Pct Auto 0.6 % (0.0-0.4); Lymphocytes Percent Auto 29.1 % (20-40); Mean Corpuscular HGB Conc 31.6 g/dl (31.0-36.0); Mean Corpuscular Hemoglobin 26.3 pg (27.0-33.0); Mean Corpuscular Volume 83.2 fL (80.0-98.0); Mean Platelet Volume 12.1 fL (9.4-12.4); Monocytes Absolute Auto 0.5 X10*3/uL (0.1-1.2); Monocytes Percent Auto 7.1 % (2-11); Platelet Count 240 X10*3/uL (160-400); Red Blood Count 5.43 X10*6/uL (4.60-5.80); Red Cell Distribution Width 13.3 % (11.0-16.0); White Blood Count 6.7 X10*3/uL (4.8-10.8)
[2022-12-04 11:58] LABS: Alanine Aminotransferase 23 U/L (0-40); Albumin Level 4.5 g/dL (3.5-5.0); Alkaline Phosphatase 39 U/L (39-117); Anion Gap 13 (12-20); Aspartate Amino Transferase 21 U/L (5-37); Bilirubin Total 0.6 mg/dL (0.0-1.0); Blood Urea Nitrogen 14 mg/dL (9-16); Calcium 10.2 mg/dL (8.4-10.2); Carbon Dioxide 27 mmol/L (22-29); Chloride 103 mmol/L (96-108); Cholesterol 252 mg/dL (<200); Estimated Glomerular Filt Rate > 60; Glucose Fasting 84 mg/dL (60-99); HDL Cholesterol 37 mg/dL (>40); LDL Cholesterol Calculated 160 mg/dL (<100); Potassium 4.2 mmol/L (3.3-5.1); Sodium 139 mmol/L (135-145); Total Protein 7.7 g/dL (6.5-8.0); Triglycerides 278 mg/dL (<150)
[2022-12-04 12:00] LABS: TSH reflex Free T4 2.33 uIU/mL (0.32-4.0)
== END 2022-12-04 07:46 | disposition home or self-care (01) ==
LOC: HO.HMGCLDS 07:45
PROVIDERS: PCP Internal Medicine; Visit Provider Internal Medicine
DX: E03.9 Hypothyroidism, unspecified (principal); I10 Essential (primary) hypertension; E78.5 Hyperlipidemia, unspecified
CPT/HCPCS: 36415; 80053; 80061; 84443; 85025

== ENCOUNTER 2023-06-02 08:16 | Outpatient (AMB) | payer OTHER, SELFPAY ==
[2023-06-02 08:46] VITALS: BP 110/78; PULSE 77; TEMP 36.4; O2SAT 96; BMI 27.0
--- NOTE | 2023-06-02 08:46 | AM.OFFWIN_ITS ---
Intake Vital Signs 06/02/23 08:46 Height 5 ft 10 in Weight 188 lb BMI 27.0 BP 110/78 Blood Pressure Location Lt brachial Position Sitting Pulse 77 Pulse Source Pulse Oximeter Temp 97.5 F Temp Source Temporal Artery Scan Pulse Oximetry (%) 96 Oxygen Delivery Method Room Air Intake Visit Reasons: Sore Throat (lobby) Intake Note: pt is here today for sore throat started today Patient Tobacco Use Status: Never used Tobacco Allergies No Known Allergies Allergy (Verified 06/02/23 08:47) Do you need a note to return to daycare/school/sports/work: No HPI HPI Comments History of Present Illness Details 47 y/o male patient who presents to walk in clinic with c/o Sore th roat, runny nose, nasal congestion, sneezing and sinus pressure x 2 days. Denies any sick contacts at home. Denies fevers, chills, nausea or vomiting. PFS Medical History Asthma due to seasonal allergies Seasonal asthma Rosacea Hyperlipidemia Hemorrhoids Annual physical exam Kidney stones History of hemorrhoids Surgical History Hx of appendectomy Hx of endoscopy History of colonoscopy Family History Father History of high blood pressure Hx of type 1 diabetes mellitus Mother No problems noted. Social History Household Members: Spouse and Children Housing: House Alcohol intake: never Patient Tobacco Use Status: Never used Tobacco e-Cigarette/Vaping Use: Never Used Current occupational status: employed Cognitive needs: No Hearing needs: No Vision needs: Yes Review of Systems Const All systems reviewed & are unremarkable except as noted in HPI and below Physical Exam Vital Signs: Last Vital Signs Temp 97.5 F 06/02/23 08:46 Pulse 77 06/02/23 08:46 BP 110/78 06/02/23 08:46 Pulse Ox 96 06/02/23 08:46 Oxygen Delivery Method Room Air 06/02/23 08:46 BMI result Body Mass Index 27.0 Const General: comfortable and no acute distress Orientation/consciousness: patient oriented x3 HEENT Head: Yes normocephalic and Yes atraumatic Ears: external ears normal and TM's normal bilaterally General nose exam: Abnormal mucous membranes and turbinates present boggy and erythematous and Nasal discharge present Face and sinus: Yes sinuses nontender Mouth: moist mucous membranes Throat: Yes posterior oropharynx normal Resp Effort & Inspection: normal respiratory effort and able to speak in complete sentences Auscultation: clear to auscultation bilaterally, no crackles, no rales, no rhonchi and no wheezes Cardio Rate: regular rate Rhythm: regular rhythm Neuro General: patient oriented x3 Results AMB Rapid Strep AMB Rapid Strep Negative Last Edit by Polly Arthur on 06/02/23 09:01 Results Reviewed Results Reviewed: Laboratory Last Values Strep Scn Rapid Clinic Negative 06/02/23 09:00 Assessment & Plan Assessment & Plan (1) Acute pharyngitis: Code(s): J02.9 - Acute pharyngitis, unspecified Qualifiers: Pharyngitis/tonsillitis etiology: unspecified etiology Qualified Code(s): J02.9 - Acute pharyngitis, unspecified Plan: - OTC sore throat remedies. - Rest - Hydrate with warm fluids and honey - Acetaminophen for pain relief. (2) Allergic rhinitis: Code(s): J30.9 - Allergic rhinitis, unspecified Qualifiers: Allergic rhinitis seasonality: seasonal Allergic rhinitis trigger: unspecified Qualified Code(s): J30.2 - Other seasonal allergic rhinitis Plan: - Flonase and zyrtec PRN Orders: Orders SARS-CoV2/FLU/RSV Today J02.9 - Acute pharyngitis, unspecified Medications: New cetirizine (Zyrtec) 10 mg PO DAILY PRN 30 tabs 0RF allergy symptoms J30.9 - Allergic rhinitis, unspecified fluticasone propionate 50 mcg/actuation (Flonase Allergy Relief) administer into each nostril 1 spray intranasal BID 16 grams 0RF allergies J30.9 - Allergic rhinitis, unspecified Coding Level of Care Code Est Pt Level 3 (47122) Diagnoses Acute pharyngitis, unspecified etiology J02.9 Pharyngitis/tonsillitis etiology: unspecified etiology Seasonal allergic rhinitis, unspecified trigger J30.2 Allergic rhinitis seasonality: seasonal Allergic rhinitis trigger: unspecified Time Spent (min) 15
== END 2023-06-02 10:07 | disposition home or self-care (01) ==
PROVIDERS: PCP Internal Medicine; Visit Provider Nurse Practitioner Family
DX: J02.9 Acute pharyngitis, unspecified (principal); J30.2 Other seasonal allergic rhinitis
CPT/HCPCS: 87880; 99213

== ENCOUNTER 2023-06-02 09:05 | Outpatient (REF) | payer OTHER, SELFPAY ==
[2023-06-02 11:51] LABS: Influenza A PCR NEGATIVE (Negative); Influenza B PCR NEGATIVE (Negative); Resp Syncy Virus RNA Qual PCR NEGATIVE (Negative); SARS COV2 PCR INHOUSE NEGATIVE (Negative)
== END 2023-06-02 09:06 | disposition home or self-care (01) ==
LOC: HO.LAB 09:05
PROVIDERS: Visit Provider Nurse Practitioner Family
DX: J02.9 Acute pharyngitis, unspecified (principal)
CPT/HCPCS: 0241U

== ENCOUNTER 2023-07-18 08:08 | Outpatient (AMB) | payer OTHER, SELFPAY ==
--- NOTE | 2023-07-18 08:21 | MHC.OFFWIV ---
Intake Vital Signs 07/18/23 08:22 Height 5 ft 10 in BP 128/74 Blood Pressure Location Rt brachial Position Sitting Pulse 80 Pulse Source Pulse Oximeter Temp 97.9 F Temp Source Oral Pulse Oximetry (%) 98 Intake Visit Reasons: EST/ ring finger pain (lobby) Intake Note: pt is here for pain on right ring finger Patient Tobacco Use Status: Never used Tobacco Allergies No Known Allergies Allergy (Verified 07/18/23 08:28) Medication List - Last Reconciled 07/18/23 by Aleksandr Sawyer MD albuterol sulfate 90 mcg/actuation (Ventolin HFA) 1 inh inhalation QID PRN cetirizine (Zyrtec) 10 mg PO DAILY PRN fluticasone propionate 50 mcg/actuation (Flonase Allergy Relief) 1 spray intranasal BID levothyroxine 50 mcg PO DAILY lisinopril 10 mg PO DAILY Do you need a note to return to daycare/school/sports/work: Yes HPI EST/ ring finger pain (lobby) HPI Details 47-year-old presents to the office for a sick visit. Patient stubbed a finger of the left hand while doing y limitation in the range of motion. yard work. Significant pain and swelling in the finger. [facility] Medical History Asthma due to seasonal allergies Seasonal asthma Rosacea Hyperlipidemia Hemorrhoids Annual physical exam Kidney stones History of hemorrhoids Surgical History Hx of appendectomy Hx of endoscopy History of colonoscopy Family History Father History of high blood pressure Hx of type 1 diabetes mellitus Mother No problems noted. Social History Household Members: Spouse and Children Housing: House Alcohol intake: never Patient Tobacco Use Status: Never used Tobacco e-Cigarette/Vaping Use: Never Used Current occupational status: employed Cognitive needs: No Hearing needs: No Vision needs: Yes Physical Exam Vital Signs: Last Vital Signs Temp 97.9 F 07/18/23 08:22 Pulse 80 07/18/23 08:22 BP 128/74 07/18/23 08:22 Pulse Ox 98 07/18/23 08:22 Extrem Other: Left hand: 4th digit: Swelling at the distal phalanx and pulp space. Pain on flexion. Erythema over the pulp space Assessment & Plan Assessment & Plan (1) Contusion of left hand: Code(s): S60.222A - Contusion of left hand, initial encounter Plan: X-ray images were personally reviewed by me. Dislocation of the terminal phalanx. It was splinted and ortho referral made. Patient was sent right away to to the ortho office. Orders: Orders XR hand LT min 3V Today S60.222A - Contusion of left hand, initial encounter Coding Level of Care Code Est Pt Level 4 (82357) Diagnoses Contusion of left hand S60.222A
[2023-07-18 08:22] VITALS: BP 128/74; PULSE 80; TEMP 36.6; O2SAT 98
== END 2023-07-18 09:31 | disposition home or self-care (01) ==
PROVIDERS: PCP Internal Medicine; Visit Provider Internal Medicine
DX: S60.222A Contusion of left hand, initial encounter (principal)
CPT/HCPCS: 99214

== ENCOUNTER 2023-07-18 08:27 | Outpatient (REF) | payer OTHER, SELFPAY ==
--- NOTE | ~2023-07-18 | XR_ITS ---
EXAMINATION: XR HAND, LEFT CLINICAL INFORMATION: Contusion left hand COMPARISON: None available. TECHNIQUE: PA, lateral, and oblique views of the left hand. FINDINGS: There is dorsal dislocation at the DIP joint of the fifth fourth digit. No fractures are seen. The bones and soft tissues are otherwise unremarkable. Joint spaces are otherwise maintained. No erosions or soft tissue calcifications. XR/XR hand LT min 3V IMPRESSION: Dorsal dislocation at the DIP joint of the fourth digit.
== END 2023-07-18 08:28 | disposition home or self-care (01) ==
LOC: HO.HMGCX 08:27
PROVIDERS: PCP Internal Medicine; Visit Provider Internal Medicine
DX: S60.222A Contusion of left hand, initial encounter (principal)
CPT/HCPCS: 73130

== ENCOUNTER 2023-07-18 09:17 | Outpatient (AMB) | payer OTHER, SELFPAY ==
--- NOTE | 2023-07-18 09:21 | A.OFFVIS_ITS ---
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 Patient reports that he was doing yardwork yesterday, he was putting away the bumper straightener when a box fell and he jammed his finger. He states that he is having pain in the finger, denies numbness. He has very limited ROM. 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 Patient reports that he was doing yardwork yesterday, he was putting away the bumper straightener when a box fell and he jammed his finger. He states that he is having pain in the finger, denies numbness. He has very limited ROM. Patient was [facility] this morning but was sent to our office due to Left 4th Finger DIP Dislocation PFSH Medical History Asthma due to seasonal allergies Seasonal asthma Rosacea Hyperlipidemia Hemorrhoids Annual physical exam Kidney stones History of hemorrhoids Surgical History Hx of appendectomy Hx of endoscopy History of colonoscopy Family History Father History of high blood pressure Hx of type 1 diabetes mellitus Mother No problems noted. Social History Household Members: Spouse and Children Housing: House Alcohol intake: never Patient Tobacco Use Status: Never used Tobacco e-Cigarette/Vaping Use: Never Used Current occupational status: employed Cognitive needs: No Hearing needs: No Vision needs: Yes Physical Exam Vital Signs: BMI result Body Mass Index 27.0 Const General: cooperative, healthy appearing, no acute distress, well developed and alert HEENT Head: Yes normal to inspection, Yes normocephalic and Yes atraumatic Mouth: moist mucous membranes Eyes General: appearance normal, both eyes and all related structures EOM: EOMs intact bilaterally Chest Other: no audible wheezing. Resp Other: No audible wheezing Effort & Inspection: normal respiratory effort Back/Spine/Pelvis Cervical Spine: normal cervical lordosis Skin General skin exam: no rashes or lesions noted Neuro General: no focal motor deficits Extrem Other: dorsal dislocation left RF DIP Psych Appearance: grossly normal and well kempt Mental Status: mental status grossly normal Speech and movement: Normal speech and movement present Affect: normal affect Attitude: cooperative Results Reviewed Results Reviewed: I personally reviewed relevant radiographs. Dorsal dislocation left RF DIP with post reduction xrays demonstrating anatomic alignment Assessment & Plan Assessment & Plan (1) Dislocation of distal interphalangeal (DIP) joint of finger: Code(s): S63.299A - Dislocation of distal interphalangeal joint of unspecified finger, initial encounter Category: Medical Plan: This is a 47-year-old gentleman with a dorsal dislocation of the left ring finger DIPJ. This was reduced in my office without difficulty and easily. Postreduction x-rays showed reduction of the joint without bony injury. I placed him in a stack splint and recommend occupational therapy. See back in 4 weeks. Orders: Orders XR hand LT min 3V Today S63.299A - Dislocation of distal interphalangeal joint of unspecified finger, initial encounter OT Evaluation and Treatment Today S63.299A - Dislocation of distal interphalangeal joint of unspecified finger, initial encounter Coding Level of Care Code New Pt Level 4 (61413) Diagnoses Dislocation of distal interphalangeal (DIP) joint of finger S63.299A
[2023-07-18 09:24] VITALS: BMI 27.0
== END 2023-07-18 09:50 | disposition home or self-care (01) ==
LOC: HO.HOS 09:17
PROVIDERS: PCP Internal Medicine; Visit Provider Orthopaedic Surgery
DX: S63.295A Dislocation of distal interphalangeal joint of left ring finger, initial encounter (principal)
CPT/HCPCS: 99203

== ENCOUNTER 2023-07-18 09:34 | Outpatient (REF) | payer OTHER, SELFPAY ==
--- NOTE | ~2023-07-18 | XR_ITS ---
EXAMINATION: XR HAND, LEFT CLINICAL INFORMATION: Dislocation of distal interphalangeal joint COMPARISON: X-ray left hand on 07/18/2023 at 0852 hours TECHNIQUE: PA, lateral, and oblique views of the left hand on 07/18/2023 at 0940 hours. FINDINGS: BONES: Bony structures are intact. There is no focal bone destruction or periosteal reaction seen. JOINTS: Alignment of joints is normal. SOFT TISSUE: Soft tissue is normal. Proximal segment of left fourth finger is partially obscured by metallic ring. No radiopaque foreign body or abnormal air collection is seen. XR/XR hand LT min 3V IMPRESSION: 1. Interval successful closed reduction of left fourth finger distal interphalangeal joint. 2. No fracture or dislocation or signs of osteomyelitis are found.
== END 2023-07-18 09:35 | disposition home or self-care (01) ==
LOC: HO.HOSX 09:34
PROVIDERS: Visit Provider Orthopaedic Surgery
DX: S60.222A Contusion of left hand, initial encounter (principal)
CPT/HCPCS: 73130

== ENCOUNTER 2023-12-29 09:12 | Outpatient (REF) | payer OTHER, SELFPAY ==
[2023-12-29 10:08] LABS: MANUAL DIFF FLAG NO
[2023-12-29 10:16] LABS: Basophils Percent Auto 0.4 % (0-2); Eosinophils Absolute Auto 0.1 X10*3/uL (0.0-0.4); Eosinophils Percent Auto 1.4 % (0-4); Hematocrit 47.6 % (42.0-52.0); Hemoglobin 15.4 g/dl (14.0-18.0); Imm Gran Abs Auto 0.04 X10*3/uL (0.00-0.03); Imm Gran Pct Auto 0.6 % (0.0-0.4); Lymphocytes Absolute Auto 1.7 X10*3/uL (1.2-4.9); Lymphocytes Percent Auto 24.6 % (20-40); Mean Corpuscular HGB Conc 32.4 g/dl (31.0-36.0); Mean Corpuscular Hemoglobin 26.1 pg (27.0-33.0); Mean Corpuscular Volume 80.5 fL (80.0-98.0); Mean Platelet Volume 11.1 fL (9.4-12.4); Monocytes Absolute Auto 0.3 X10*3/uL (0.1-1.2); Monocytes Percent Auto 4.8 % (2-11); Neutrophils Absolute Auto 4.8 x10*3/uL (2.0-8.3); Neutrophils Percent Auto 68.2 % (45-73); Platelet Count 265 X10*3/uL (160-400); Red Blood Count 5.91 X10*6/uL (4.60-5.80); Red Cell Distribution Width 14.2 % (11.0-16.0)
[2023-12-29 10:53] LABS: Appearance Urine Clear; Color Urine Yellow; Glucose Urine UA Negative (Negative); Leukocyte Esterase Urine Negative (Negative); Nitrite Urine Negative (Negative); PH 8.5 (5.0-9.0); Urine Blood Negative (Negative); Urine Ketones Negative (Negative); Urine Protein Negative (Neg-Trace)
[2023-12-29 11:02] LABS: Bacteria Urine None Seen (None Seen); Hyaline Casts Urine 0-2 /LPF (0-2); RBC Urine 0-2 /HPF (0-2); Squamous Epithelial Cell Urine 0-2 /HPF (0-2); WBC Urine 0-5 /HPF (0-5)
[2023-12-29 11:23] LABS: Alanine Aminotransferase 32 U/L (0-40); Albumin Level 3.9 g/dL (3.5-5.0); Alkaline Phosphatase 32 U/L (39-117); Anion Gap 9 (12-20); Aspartate Amino Transferase 25 U/L (5-37); Bilirubin Total 0.4 mg/dL (0.0-1.0); Blood Urea Nitrogen 13 mg/dL (9-16); Carbon Dioxide 31 mmol/L (22-29); Chloride 104 mmol/L (96-108); Cholesterol 186 mg/dL (<200); Estimated Glomerular Filt Rate > 60; Glucose Random 84 mg/dL (60-115); HDL Cholesterol 32 mg/dL (>40); LDL Cholesterol Calculated 103 mg/dL (<100); Potassium 4.3 mmol/L (3.3-5.1); Sodium 140 mmol/L (135-145); Total Protein 6.2 g/dL (6.5-8.0); Triglycerides 258 mg/dL (<150)
[2023-12-29 11:30] LABS: TSH reflex Free T4 4.81 uIU/mL (0.32-4.0)
[2023-12-29 12:24] LABS: Free T4 (Free Thyroxine) 0.81 ng/dL (0.71-1.85)
== END 2023-12-29 09:13 | disposition home or self-care (01) ==
LOC: HO.HMGCLDS 09:12
PROVIDERS: PCP Internal Medicine; Visit Provider Internal Medicine
DX: Z00.00 Encounter for general adult medical examination without abnormal findings (principal); I10 Essential (primary) hypertension; E03.9 Hypothyroidism, unspecified; Z79.899 Other long term (current) drug therapy; Z86.0101 Personal history of adenomatous and serrated colon polyps
CPT/HCPCS: 36415; 80053; 80061; 81001; 84439; 84443; 85025; 96127

== ENCOUNTER 2023-12-29 09:28 | Outpatient (AMB) | payer OTHER, SELFPAY ==
--- NOTE | 2023-12-29 09:37 | MHC.PC.OV ---
Vital Signs 12/29/23 09:38 Height 5 ft 10 in Weight 190 lb BMI 27.3 BP 122/84 Blood Pressure Location Rt brachial Position Sitting Pulse 78 Pulse Source Pulse Oximeter Pulse Oximetry (%) 97 Oxygen Delivery Method Room Air Intake Visit Reasons: PE Intake Note: Pt is here today for PE. Allergies No Known Allergies Allergy (Verified 12/29/23 09:39) Medication List - Last Reconciled 12/29/23 by Rima Gerber MD albuterol sulfate 90 mcg/actuation (Ventolin HFA) 1 inh inhalation QID PRN cetirizine (Zyrtec) 10 mg PO DAILY PRN fluticasone propionate 50 mcg/actuation (Flonase Allergy Relief) 1 spray intranasal BID levothyroxine 50 mcg PO DAILY lisinopril 10 mg PO DAILY Tobacco use date assessed: 12/29/23 Dental Screening Dental Screen Date: 12/29/23 Did you have a dental visit in the last 12 months?: Yes Did you have a dental problem in the last 6 months where you did not have access to dental care?: No Was dental information given to patient?: Patient has dentist HPI PE HPI Details Patient presents for physical PFSH Medical History Asthma due to seasonal allergies Seasonal asthma Rosacea Hyperlipidemia Hemorrhoids Annual physical exam Kidney stones History of hemorrhoids Surgical History Hx of appendectomy Hx of endoscopy History of colonoscopy Family History Father History of high blood pressure Hx of type 1 diabetes mellitus Mother No problems noted. Social History Household Members: Spouse and Children Housing: House Alcohol intake: never Patient Tobacco Use Status: Never used Tobacco e-Cigarette/Vaping Use: Never Used service: No Current occupational status: employed Cognitive needs: No Hearing needs: No Vision needs: Yes Questionnaire PHQ-9 Over the last 2 weeks, how often have you been bothered by any of the following problems? 1. Little interest or pleasure in doing things: not at all 2. Feeling down, depressed, or hopeless: not at all 3. Trouble falling or staying asleep, or sleeping too much: not at all 4. Feeling tired or having little energy: not at all 5. Poor appetite or overeating: not at all 6. Feeling bad about yourself - or that you are a failure or have let yourself or your family down: not at all 7. Trouble concentrating on things, such as reading the newspaper or watching television: not at all 8. Moving or speaking so slowly that other people could have noticed. Or the opposite - being so fidgety or restless that you have been moving around a lot more than usual: not at all 9. Thoughts that you would be better off or of hurting yourself in some way: not at all Total score: 0 Depression Screening Interpretation: Negative Depression Screening Done: Yes 32287 - PHQ-9 Billing: Yes Source: Developed by Drs. Nolan Hyde, Sadia Snyder, Shad Hodgson and colleagues, with an educational efren from [employer]. Thrive Questionnaire Date Thrive assessed: 12/29/23 I am a: Patient What is your living situation today?: I have a steady place to live Within the past 12 months, did the food you bought not last and you didn't have the money to get more?: Never true Within the past 12 months, did you worry whether your food would run out before you got money to buy more?: Never true Do you have trouble paying for medicines?: No Do you have trouble getting transportation to medical appointments?: No Do you have trouble paying your heating and electricity bill?: No Do you have trouble taking care of your child, family member or friend?: No Do you have trouble with day-to-day activities such as bathing, preparing meals, shopping, managing finances, etc.?: No Are you currently unemployed and looking for a job?: No Are you interested in more education?: No Please select the resources that you would like help with: None Currently or been in a relationship where the following occur: No concerns reported THRIVE Score: 0 AUDIT C Alcohol Use Questionnaire (AUDIT-C) 1. How often do you have a drink containing alcohol?: Never 3. How often do you have six or more drinks on one occasion?: Never Total Score: 0 SHAYLA-7 AMB Questionnaire SHAYLA-7 Date SHAYLA - 7 assessed: 12/29/23 Feeling nervous, anxious, or on edge: 0 = Not at all Not being able to stop or control worryin = Not at all Worrying too much about different things: 0 = Not at all Trouble relaxin = Not at all Being so restless that it is hard to sit still: 0 = Not at all Becoming easily annoyed or irritable: 0 = Not at all Feeling afraid as if something awful might happen: 0 = Not at all Total SHAYLA-7 score (0-4 normal; 5-9 mild; 10-14 moderate; 15-21 severe): 0 Source: Developed by Drs. Nolan Hyde, Sadia Snyder, Shad Hodgson and colleagues, with an educational efren from [employer]. SHAYLA-7 Assessment Billing SHAYLA-7 Assessment Tool: SHAYLA-7 Assessment 35943 Review of Systems Const All systems reviewed & are unremarkable except as noted in HPI and below Reports no additional complaints Eyes Reports no additional complaints ENT Reports no additional complaints Resp Reports no additional complaints GI Reports no additional complaints Reports no additional complaints Musc Reports no additional complaints Physical exam (Primary Care) Vital Signs: Last Vital Signs Pulse 78 12/29/23 09:38 BP 122/84 12/29/23 09:38 Pulse Ox 97 12/29/23 09:38 Oxygen Delivery Method Room Air 12/29/23 09:38 BMI result Body Mass Index 27.3 Tobacco/Smoking Status: Tobacco use Status Tobacco use date assessed 12/29/23 12/29/23 09:42 Patient Tobacco Use Status Never used Tobacco 12/29/23 09:42 e-Cigarette/Vaping Use Never Used 12/29/23 09:42 PHQ-9: PHQ-9 Score PHQ-9: Total score 0 12/29/23 09:42 Depression Screening Interpretation: Negative Thrive Assessment: Date of Thrive Assessment Date Thrive assessed 12/29/23 12/29/23 09:42 Currently or been in a relationship where the following occur: No concerns reported Const General: no acute distress HENMT Head: Yes normal to inspection Ears: hearing grossly normal bilaterally General nose exam: Normal external nose present Face and sinus: Yes normal facial exam Mouth: Normal oral and palatal mucosa present Throat: Yes posterior oropharynx normal Eyes General: appearance normal, both eyes and all related structures Neck Neck: Yes no lymphadenopathy and Yes supple Resp Effort & Inspection: normal respiratory effort Auscultation: clear to auscultation bilaterally Cardio Rhythm: regular rhythm Heart sounds: S1 normal heart sound present and S2 normal heart sound present GI Inspection: Yes normal to inspection Palpation (GI): Soft to palpation Percussion: Yes normal to percussion Auscultation: normal bowel sounds Coding Level of Care Code Est Pt Prev Care 40-64y(66857) Diagnoses HTN (hypertension) I10 Hypothyroid E03.9 History of colon polyps Z86.010 Annual physical exam Z00.00 Additional Codes SHAYLA-7 Assessment Billing - SHAYLA-7 Assessment Tool: SHAYLA-7 Assessment 09395 ([id number]) Assessment & Plan Assessment & Plan (1) HTN (hypertension): Code(s): I10 - Essential (primary) hypertension Category: Medical Plan: Continue Lisinopril (2) Hypothyroid: Code(s): E03.9 - Hypothyroidism, unspecified Category: Medical Plan: Continue levothyroxine (3) History of colon polyps: Comment: 11/20/19 COLONOSCOPY SHOWED: Two adenomatous polyps (one was 10-12 mm) were removed and moderate diverticulosis seen in the sigmoid colon. repeat colonoscopy 09/26 no polyps, recheck 5 yrs Code(s): Z86.010 - Personal history of colon polyps Category: Medical Plan: Follow-up with GI (4) Annual physical exam: Code(s): Z00.00 - Encounter for general adult medical examination without abnormal findings Category: Medical Plan: Well-balanced diet regular physical activity discussed with the patient return in 1 year Orders: Orders UA w Microscopic 1 Year E03.9 - Hypothyroidism, unspecified, E78.5 - Hyperlipidemia, unspecified, I10 - Essential (primary) hypertension, Z00.00 - Encounter for general adult medical examination without abnormal findings Comprehensive [place]. Panel Fast 1 Year E03.9 - Hypothyroidism, unspecified, E78.5 - Hyperlipidemia, unspecified, I10 - Essential (primary) hypertension, Z00.00 - Encounter for general adult medical examination without abnormal findings TSH reflex Free T4 1 Year E03.9 - Hypothyroidism, unspecified, E78.5 - Hyperlipidemia, unspecified, I10 - Essential (primary) hypertension, Z00.00 - Encounter for general adult medical examination without abnormal findings Lipid Panel 1 Year E03.9 - Hypothyroidism, unspecified, E78.5 - Hyperlipidemia, unspecified, I10 - Essential (primary) hypertension, Z00.00 - Encounter for general adult medical examination without abnormal findings Complete Blood Count Auto Diff 1 Year E03.9 - Hypothyroidism, unspecified, E78.5 - Hyperlipidemia, unspecified, I10 - Essential (primary) hypertension, Z00.00 - Encounter for general adult medical examination without abnormal findings Medications: Refilled albuterol sulfate 90 mcg/actuation (Ventolin HFA) 1 inh inhalation QID PRN 8.5 grams 1RF shortness of breath or wheezing lisinopril 10 mg PO DAILY 90 tabs 3RF levothyroxine 50 mcg PO DAILY 90 tabs 3RF
[2023-12-29 09:38] VITALS: BP 122/84; PULSE 78; O2SAT 97; BMI 27.3
== END 2023-12-29 10:03 | disposition home or self-care (01) ==
PROVIDERS: PCP Internal Medicine; Visit Provider Internal Medicine
DX: I10 Essential (primary) hypertension (principal); E03.9 Hypothyroidism, unspecified; Z86.0100 Personal history of colon polyps, unspecified; Z00.00 Encounter for general adult medical examination without abnormal findings

== ENCOUNTER 2024-11-27 15:58 | Outpatient (AMB) | payer OTHER, SELFPAY ==
[2024-11-27 16:02] VITALS: BP 134/84; PULSE 69; TEMP 36.7; O2SAT 97; BMI 27.4
--- NOTE | 2024-11-27 16:02 | AM.OFFWIN_ITS ---
Intake Vital Signs 11/27/24 16:02 Height 5 ft 10 in Weight 191 lb BMI 27.4 BP 134/84 Blood Pressure Location Lt brachial Position Sitting Pulse 69 Pulse Source Pulse Oximeter Temp 98.0 F Temp Source Oral Pulse Oximetry (%) 97 Oxygen Delivery Method Room Air Intake Visit Reasons: EP-lsp pain & swollen Intake Note: pt presents with low back pain for 3 days Patient Tobacco Use Status: Never used Tobacco Allergies No Known Allergies Allergy (Verified 11/27/24 16:04) Do you need a note to return to daycare/school/sports/work: No HPI HPI Comments History of Present Illness Details History - The patient is a 49-year-old male pres enting with low back pain. - The pain began 3 days ago while perfor luz a task at home, described as a pressure sensation in the lower back, predominantly on the left side. - The patient reports no radiation of pa in to the legs, no numbness, tingling, or weakness, and no loss of bladder or bowel control. - The pain is not exacerbated by palpati on or bending forward but is irritated by twisting motions. - Initial interventions included taking ibuprofen and a hot shower, which provided some relief. - The patient denies any history of margarita rointestinal bleeding. Physical Exam General: cooperative, healthy appearing and comfortable, patient oriented x3 Head: Yes normal to inspection and Yes normocephalic General nose exam: Normal external nose present Face and sinus: Yes normal facial exam Effort & Inspection: normal respiratory effort and able to speak in complete sentences Back/spine: no spinal tenderness of cervical, thoracic or lumbar spine cervical, thoracic and lumbar spine normal to inspection cervical ROM normal, thoracic ROM normal, TTP on bilateral low back, no spasms noted. Pain with lumbar rotation left and right, can touch toes with no pain. Neuro: gait normal, A&O x3 Review of Systems - Musculoskeletal: Reports pressure sens ation in the lower back, denies radiation of pain to legs, numbness, tingling, or weakness. - Neurological: Denies loss of bladder o r bowel control. All systems reviewed and are unremarkable except as noted in HPI [facility] Medical History Asthma due to seasonal allergies Seasonal asthma Rosacea Hyperlipidemia Hemorrhoids Annual physical exam Kidney stones History of hemorrhoids Surgical History Hx of appendectomy Hx of endoscopy History of colonoscopy Family History Father History of high blood pressure Hx of type 1 diabetes mellitus Mother No problems noted. Social History Household Members: Spouse and Children Housing: House Alcohol intake: never Patient Tobacco Use Status: Never used Tobacco e-Cigarette/Vaping Use: Never Used service: No Current occupational status: employed Cognitive needs: No Hearing needs: No Vision needs: Yes Physical Exam Vital Signs: Last Vital Signs Temp 98.0 F 11/27/24 16:02 Pulse 69 11/27/24 16:02 BP 134/84 11/27/24 16:02 Pulse Ox 97 11/27/24 16:02 Oxygen Delivery Method Room Air 11/27/24 16:02 BMI result Body Mass Index 27.4 Assessment & Plan Assessment & Plan (1) Low back pain: Code(s): M54.50 - Low back pain, unspecified Qualifiers: Chronicity: acute Back pain laterality: bilateral Sciatica presence: without sciatica Qualified Code(s): M54.50 - Low back pain, unspecified Plan: Plan - Prescribe diclofenac, an anti-inflammatory medication, to be taken every 12 hours for the next 2-3 days then PRN. - Recommend the use of heat or ice as needed for comfort, and advise against taking additional NSAIDs to avoid excessive medication and damage to kidneys. - Prescribe a muscle relaxant to be taken at night, with the option to increase the dose if necessary. - Advise rest and avoidance of activities that may exacerbate the pain, with a follow-up if symptoms do not improve. - Discuss the possibility of physical therapy if the condition does not improve within the coming weeks. - Any weakness of lower extremities, loss of control of bladder or bowels, he should go to the Emergency Department. Patient was informed and verbally consented to the use of an ambient scribe for clinic note documentation during this visit. Medications: New diclofenac sodium 50 mg PO Q12H PRN 20 tabs 0RF pain cyclobenzaprine 5 mg PO Q8H PRN 20 tabs 0RF Muscle Spasm Coding Level of Care Code Est Pt Level 3 (11148) Diagnoses Acute bilateral low back pain without sciatica M54.50 Chronicity: acute Back pain laterality: bilateral Sciatica presence: without sciatica
--- OUTSIDE RECORDS SUMMARY | 2024-11-27 18:31 | XMS_ITS | Encounter Summary ---
Author Organization [facility] Address [address] [place] [id number] Phone Care Team Providers Care Label Stitcher Name Role Phone Rima Gerber MD Primary Care Provider [phone] Encounter Details Date Type Department Care Team (Late st Contact Info) Description 03/07/2022 Procedure Pass [facility], Ct Scan - [address] [address] Social History Tobacco Use Types Packs/Day Years Used Date Smoking Tobacco: Never Smokeless Tobacco: Never Alcohol Use Standard Drinks/Week Comments Never 0 (1 standard drink = 0.6 oz pur e alcohol) Intimate Partner Violence Answer Date R ecorded Are you denied basic needs s uch as food, clothing, or medical care? No 03/07/2022 In the past 12 months have y ou been in a relationship with a person who hurts, threatens, or tries to control you? No 03/07/2022 Are you denied basic needs s uch as food, clothing, or medical care? No 03/07/2022 In the past 12 months have y ou been in a relationship with a person who hurts, threatens, or tries to control you? No 03/07/2022 Sex and Gender Information Value Date Recorded Sex Assigned at Male 03/07/2022 5:52 PM EST Legal Sex Male 5:33 PM EST Gender Identity Male 03/07/2022 5:52 PM EST Sexual Orientation Not on file documented as of this encounter Functional Status * Calculated C-SSRS Risk Score (Lifetime/Recent) Answer Date of Assessment Author No Risk Indicated 03/07/2022 11:53 PM Agustina Garcia RN * [place] Suicide Severity Rating Scale (Screener/Recent Self-Report) Question Answer Date of Assessment Author 1. Wish to be (Past 1 Month) No 03/07/2022 11:53 PM Colin Garcia RN 2. Non-Specific Active Suici lee Thoughts (Past 1 Month) No 03/07/2022 11:53 PM Robert Garcia RN 6. Suicidal Behavior (Lifetime) No 11:53 PM Agustina Garcia RN documented as of this encounter Plan of Treatment Not on file documented as of this encounter Visit Diagnoses Not on filedocumented in this encounter Care Teams Label Stitcher Relationship Specialty Start Date End Date Rima Gerber MD [address] [facility] [place] [address] PCP - General Internal Medicine 03/07/22 documented as of this encounter Additional Source Comments The information contained in this document represents components of the legal health record. It is not the complete legal health record.[facility]
--- OUTSIDE RECORDS SUMMARY | 2024-11-27 18:31 | XMS_ITS | Patient Health Record ---
Author Organization [facility] Address [address] [place] [address] Care Team Providers Care Fulfillment Representative Name Role Phone Kentrell Darnell M.D. Primary Care Provider Ruth Nolan Sweeney Unavailable [phone] Reason For Referral No Information Medications Medication SIG (Take, Route, Frequency, Duration) Notes Start Date End Date Status dilTIAZem HCl ER Coated Beads 120 MG TAKE ONE CAPSULE EVERY DAY Oral for 30 Active Levothyroxine Sodium 25 MCG TAKE 1 TABLE T BY MOUTH EVERY DAY Oral for 30 Active MoviPrep 100 GM as directed Orally a s directed for 1 dose 07/25/2014 Active Problems Problem Type SNOMED Code ICD Code Onset Dates Problem Status W/U Status Risk Notes Problem Blood in stool (195139708) Blood in stool (578.1) Active confirmed Plan Of Treatment Future Test Test Name Order Date COLONOSCOPY 07/25/2014 Insurance Providers Payer Name Payer Address Payer Phone Subscriber Number Group Number Insured Name Patient Relationship to Insured Coverage Start Date Coverage End Date [facility] [address] [place] [phone] [id number] ARIANE EDMONDS Self - patient is the insured Medical (General) History Medical History History ICD Code HTN Denies [place],DM,CVA,Lung disease,renal dise ase Hypothyroidism Kidney stone
--- OUTSIDE RECORDS SUMMARY | 2024-11-27 18:31 | XMS_ITS | Encounter Summary ---
Author Organization [facility] Address [address] [place] [address] Phone Care Team Providers Care Replenishment Merchandising Associate Name Role Phone Rima Gerber MD Primary Care Provider [phone] Encounter Details Date Type Department Care Team (Late st Contact Info) Description 03/07/2022 Procedure Pass [place] Admitting Dept - Virtual Department [address] [place] [address] Social History Tobacco Use Types Packs/Day Years Used Date Smoking Tobacco: Never Smokeless Tobacco: Never Alcohol Use Standard Drinks/Week Comments Never 0 (1 standard drink = 0.6 oz pur e alcohol) Intimate Partner Violence Answer Date R ecorded Are you [facility] needs [facility], clothing, or medical care? No 03/07/2022 In the past 12 months have y ou been in a relationship with a person who hurts, threatens, or tries to control you? No 03/07/2022 Are you denied basic needs [facility] as food, clothing, or medical care? No [...] 03/07/2022 11:53 PM Agustina Garcia RN * [place] Suicide Severity Rating Scale (Screener/Recent Self-Report) Question Answer Date of Assessment Author 1. Wish to be (Past 1 Month) No 03/07/2022 11:53 PM oClin Garcia RN 2. Non-Specific Active Suici lee Thoughts (Past 1 Month) No 03/07/2022 11:53 PM Robert Garcia RN 6. Suicidal Behavior (Lifetime) No 11:53 PM Agustina Garcia RN documented as of this encounter Plan of Treatment Not on file documented as of this encounter Visit Diagnoses Not on filedocumented in this encounter Care Teams Replenishment Merchandising Associate Relationship Specialty Start Date End Date Rima Gerber MD [address] [place] [address] PCP - General Internal Medicine 03/07/22 documented as of this encounter Additional Source Comments The information contained in this document represents components of the legal health record. It is not the complete legal health record.[facility]
--- OUTSIDE RECORDS SUMMARY | 2024-11-27 18:31 | XMS_ITS | Clinical Summary ---
Author Organization Formerly [facility] Address [address] [place] [id number] Phone Care Team Providers Care Blindstitch Lining Feller Name Role Phone Rima Gerber MD Primary Care Provider [phone] Allergies No known active allergies Medications levothyroxine (SYNTHROID,LEVO THROID) 25 MCG tablet Take 25 mcg by mouth every morning. Active lisinopril (PRINIVIL,ZESTR IL) 5 MG tablet Take 5 mg by mouth daily. Active omeprazole (PRILOSEC) 20 MG capsule Take 20 mg by mouth daily. Active acetaminophen (TYLENOL) 325 mg tablet Take 2 tablets (650 mg total) by mouth every 6 (six) hours as needed. 0 3 Active fluticasone propionate (FLONASE) 50 mcg/actuation nasal spray USE 1 SPRAY IN EACH NOSTRIL TWICE DAILY 2 Active albuterol 90 mcg/actuation inhaler INHALE 1 PUFF BY MOUTH 4 TIMES A DAY NEEDED FOR SHORTNESS OF BREATH OR WHEEZING 2 Active Active Problems Problem Noted Date Diagnosed Date S/P laparoscopic appendectomy 03/15/2022 Resolved Problems Problem Noted Date Diagnosed Date Resolved Date Acute appendicitis, unspecif ied acute appendicitis type 03/07/2022 03/15/2022 Social History Tobacco Use Types Packs/Day Years Used Date Smoking Tobacco: Never Smokeless Tobacco: Never Tobacco Cessation:Counseling Given: Not Answered Alcohol Use Standard Drinks/Week Comments Never 0 (1 standard drink = 0.6 oz pur e alcohol) Education Answer Date Recorded Are you interested in more education? Not on wendi e 07/03/2022 Are you concerned about learning? Not on file 07/03/2022 No 07/03/2022 No 07/03/2022 Digital Access Answer Date Recorded No 08/01/2022 No 08/01/2022 No 08/01/2022 Reliable internet access at home? Not on file 08/01/2022 Device with a working camera? Not on file Intimate Partner Violence Answer Date R ecorded [...] PM EST Sexual Orientation Not on file Last Filed Vital Signs Vital Sign Reading Time Taken Comments Blood Pressure 124/64 03/15/2022 1:25 PM EST Pulse 90 03/15/2022 1:25 PM EST Temperature 36.5 C (97.7 F) 03/15/2022 1:25 PM EST Respiratory Rate 16 03/08/2022 8:10 AM EST Oxygen Saturation 99% 03/15/2022 1:25 PM EST Inhaled Oxygen Concentration - - Weight 83.3 kg (183 lb 10.3 oz) 023 11:54 PM EST Height 177.8 cm (5' 10 ) 03/07/2022 5:51 PM EST Body Mass Index 26.35 03/07/2022 5:51 PM EST Plan of Treatment Health Maintenance Due Date Last Done Comments Adult Td,Tdap Booster 1975 LIPID PANEL 1975 TSH LEVEL 1975 DEPRESSION SCREENING 1987 HEPATITIS C SCREENING 08/02/1993 HIV ONE-TIME SCREENING (18-6 5 YEARS) 08/02/1993 COLOGUARD 08/02/2020 COLONOSCOPY 08/02/2020 COLORECTAL CANCER SCREENING 08/02/2020 FIT TEST 08/02/2020 FOBT 08/02/2020 SIGMOIDOSCOPY 08/02/2020 VIRTUAL COLONOSCOPY 08/02/2020 CREATININE LEVEL 03/08/2023 03/08/2022, 03/07/2022 POTASSIUM LEVEL 03/08/2023 03/08/2022, 03/07/2022 INFLUENZA VACCINE (#1) 2024 COVID-19 VACCINE (1 - 2023-2 5 season) 2024 SCREENING FOR DIABETES 03/07/2025 03/07/2022 SMOKING STATUS SCREENING (On ce After 26 Yrs) Completed 03/15/2022 HEPATITIS A VACCINES Aged Out No long er eligible based on patient's age to complete this topic HIB VACCINES Aged Out No longer eligi ble based on patient's age to complete this topic MENINGOCOCCAL VACCINES (ACWY) Aged Out No longer eligible based on patient's age to complete this topic MENINGOCOCCAL VACCINES (B) Aged Out N o longer eligible based on patient's age to complete this topic PNEUMOCOCCAL VACCINES (0-49 years) Aged Out No longer eligible b ased on patient's age to complete this topic Medical Devices Not on file Procedures Procedure Name Priority Date/Time Associated Diagnosis Comments BASIC METABOLIC PANEL Routine 03/08/2022 6:08 AM EST from Last 3 Months or Most Recently Relevant to Health Maintenance Results * (ABNORMAL) Basic metabolic panel (03/08/2022 6:08 AM EST) SODIUM 138 133 - 146 mmol/L [facility] CHLORIDE 100 96 - 108 mmol/L [facility] POTASSIUM 4.3 3.3 - 5.1 mmol/L [facility] CO2 29 21 - 35 mmol/L [facility] BUN 12 6 - 19 mg/dL [facility] CREATININE 1.10 0.5 - 1.5 mg/dL [facility] GLUCOSE 135(H) 70 - 99 mg/dL [facility] CALCIUM 9.9 8.4 - 10.3 mg/dL [facility] EGFR 84 >59 mL/min/1.7 3m2 [facility] Comment:Estimated glomerular filtration rate calculated using the CKD-EPI refit equation. ANION GAP 13 10 - 20 mmol/L [facility] Blood 03/08/2022 6:08 AM EST 03/08/2022 6:18 AM EST us Sigrid Willis MD LAB BLOOD ORDERABLES Final R esult [facility] [address] [place] [address] from Last 3 Months or Most Recently Relevant to Health Maintenance Insurance O O O O O O Advance Directives For more information, please contact: [phone] (9AM - 5PM [place], Tuesday-Tuesday) * Full Code (Latest Code Status on File) Date Activated Date Inactivated Comments 03/07/2022 11:48 PM Question Answer Comments Code Status Confirmed With: Patient Care Teams Blindstitch Lining Feller Relationship Specialty Start Date End Date Rima Gerber MD 1961 [facility] [place] [address] PCP - General Internal Medicine 03/07/22 Additional Source Comments The information contained in this document represents components of the legal health record. It is not the complete legal health record.Formerly [facility]
== END 2024-11-27 16:16 | disposition home or self-care (01) ==
PROVIDERS: PCP Internal Medicine; Visit Provider Physician Assistant
DX: M54.50 Low back pain, unspecified (principal)